=== PATIENT | male | born 1935 | race Two or more races ===

== ENCOUNTER → 2019-02-03 | Outpatient (CLI) | payer MEDICARE, OTHER | END | disposition home or self-care (01) | LOC: Rad HDHVI 07:53 | PROVIDERS: ATTEND Internal Medicine Cardiovascular Disease | DX: I08.0 Rheumatic disorders of both mitral and aortic valves (principal); R22.43 Localized swelling, mass and lump, lower limb, bilateral | CPT/HCPCS: 93306; 93970 ==

== ENCOUNTER → 2019-02-11 | Outpatient (CLI) | payer MEDICARE, OTHER ==
[~2019-02-11] VITALS: Ht 177.8 cm; Wt 99.8 kg
[~2019-02-11] MED LIST: ADENOSINE 84 MG in GIVE UN-DILUTED 0 ML IV ONE; ADENOSINE 90 MG/30 ML INJ IV ONE
== END | disposition home or self-care (01) ==
LOC: Rad HDHVI 13:35
PROVIDERS: ATTEND Internal Medicine Cardiovascular Disease
DX: I51.7 Cardiomegaly (principal); E87.5 Hyperkalemia; R60.9 Edema, unspecified
CPT/HCPCS: 78452; 93005; 96374; 96375; A9500; J0153

== ENCOUNTER → 2020-03-07 | Outpatient (CLI) | payer MEDICARE, OTHER ==
[~2020-03-07] VITALS: Ht 177.8 cm; Wt 102.1 kg
== END | disposition home or self-care (01) ==
LOC: Rad HDHVI 09:36
PROVIDERS: ATTEND Internal Medicine Cardiovascular Disease
DX: I11.0 Hypertensive heart disease with heart failure (principal); I50.33 Acute on chronic diastolic (congestive) heart failure; E78.00 Pure hypercholesterolemia, unspecified
CPT/HCPCS: 78472; 96374; 96375; A9505

== ENCOUNTER → 2020-03-11 | Outpatient (CLI) | payer MEDICARE, OTHER | END | disposition home or self-care (01) | LOC: Rad HDHVI 07:58 | PROVIDERS: ATTEND Internal Medicine Cardiovascular Disease | DX: I11.9 Hypertensive heart disease without heart failure (principal); I50.33 Acute on chronic diastolic (congestive) heart failure | CPT/HCPCS: 93306 ==

== ENCOUNTER → 2023-07-24 | Outpatient (CLI) | payer MEDICARE, OTHER ==
[~2023-07-24] MED LIST changes: -ADENOSINE 84 MG in GIVE UN-DILUTED 0 ML IV ONE; -ADENOSINE 90 MG/30 ML INJ IV ONE; +BUMETANIDE 1mg/4ml VIAL (0.25mg/ml) ONE; +BUMETANIDE 2.5mg/10ml (0.25 mg/ml) INJ IV ONE; +POTASSIUM CHL 20 Meq TABLET PO ONE
[2023-07-24 15:58] VITALS: BP 128/62; PULSE 72; RESP 16; O2SAT 96
[2023-07-24 16:40] VITALS: BP 160/70; PULSE 58; RESP 16; O2SAT 96
== END | disposition home or self-care (01) ==
LOC: CHF HDHVI 16:01
PROVIDERS: ATTEND Internal Medicine Cardiovascular Disease
DX: R60.9 Edema, unspecified (principal)
CPT/HCPCS: 96374; G0463; J3490

== ENCOUNTER → 2023-07-30 | Outpatient (CLI) | payer MEDICARE, OTHER | END | disposition home or self-care (01) | LOC: Rad HDHVI 09:53 | PROVIDERS: ATTEND Internal Medicine Cardiovascular Disease | DX: I08.0 Rheumatic disorders of both mitral and aortic valves (principal); I11.9 Hypertensive heart disease without heart failure | CPT/HCPCS: 93306 ==

== ENCOUNTER → 2023-08-07 | Outpatient (CLI) | payer MEDICARE, OTHER ==
[~2023-08-07] MED LIST changes: +POTASSIUM CHL 10 Meq TABLET PO ONE
[2023-08-07 11:22] VITALS: BP 149/66; PULSE 64; RESP 16; O2SAT 96
[2023-08-07 12:38] VITALS: BP 162/71; PULSE 60; RESP 16; O2SAT 96
== END | disposition home or self-care (01) ==
LOC: CHF HDHVI 11:21
PROVIDERS: ATTEND Internal Medicine Cardiovascular Disease
DX: R60.0 Localized edema (principal)
CPT/HCPCS: 96374; G0463; J3490

== ENCOUNTER → 2023-09-06 | Outpatient (CLI) | payer MEDICARE, OTHER ==
[~2023-09-06] MED LIST changes: -BUMETANIDE 1mg/4ml VIAL (0.25mg/ml) ONE; +BUMETANIDE INJECTION 10 ML ONE
[2023-09-06 10:50] VITALS: BP 148/61; PULSE 51; RESP 18; O2SAT 99
[2023-09-06 12:08] VITALS: BP 163/69; PULSE 51; RESP 16; O2SAT 95
== END | disposition home or self-care (01) ==
LOC: CHF HDHVI 10:44
PROVIDERS: ATTEND Internal Medicine Cardiovascular Disease
DX: I11.0 Hypertensive heart disease with heart failure (principal); I50.32 Chronic diastolic (congestive) heart failure; E78.5 Hyperlipidemia, unspecified
CPT/HCPCS: 96374; G0463

== ENCOUNTER → 2023-09-19 | Outpatient (CLI) | payer MEDICARE, OTHER ==
[~2023-09-19] MED LIST changes: -BUMETANIDE 2.5mg/10ml (0.25 mg/ml) INJ IV ONE; -POTASSIUM CHL 20 Meq TABLET PO ONE
[2023-09-19 10:48] VITALS: BP 127/61; PULSE 61; RESP 16; O2SAT 100
[2023-09-19 11:07] VITALS: BP 127/61; PULSE 61; RESP 16; O2SAT 100
== END | disposition home or self-care (01) ==
LOC: CHF HDHVI 10:41
PROVIDERS: ATTEND Internal Medicine Cardiovascular Disease
DX: R60.0 Localized edema (principal)
CPT/HCPCS: G0463

== ENCOUNTER → 2023-10-03 | Outpatient (CLI) | payer MEDICARE, OTHER ==
[2023-10-03 10:58] VITALS: BP 161/70; PULSE 58; RESP 16; O2SAT 98
[2023-10-03] MEDS: CYANOCOBALAMIN (B-12) 1000 MCG/1 ML VIAL ONE (11:04)
[2023-10-03] MEDS: CYANOCOBALAMIN (B-12) 1000 MCG/1 ML VIAL IM ONE (11:20)
[2023-10-03 11:25] VITALS: BP 131/64; PULSE 58; RESP 16; O2SAT 98
[2023-10-03 11:32] VITALS: BP_SYST 124; BP_SYST 161; BP_DIAS 59; BP_DIAS 70; PULSE 58; PULSE 77; RESP 16; O2SAT 95; O2SAT 98
[2023-10-03 12:22] VITALS: BP_SYST 121; BP_SYST 131; BP_DIAS 56; BP_DIAS 64; PULSE 58; PULSE 75; RESP 16; O2SAT 95; O2SAT 98
== END | disposition home or self-care (01) ==
LOC: CHF HDHVI 10:49
PROVIDERS: ATTEND Internal Medicine Cardiovascular Disease
DX: D64.9 Anemia, unspecified (principal); I11.0 Hypertensive heart disease with heart failure; I50.32 Chronic diastolic (congestive) heart failure; E78.5 Hyperlipidemia, unspecified
CPT/HCPCS: 96372; G0463; J3420

== ENCOUNTER → 2023-10-24 | Outpatient (CLI) | payer MEDICARE, OTHER ==
[2023-10-24 12:38] VITALS: BP 143/55; PULSE 53; RESP 16; O2SAT 98
[2023-10-24] MEDS: POTASSIUM CHL 10 Meq TABLET PO ONE (12:39)
[2023-10-24] MEDS: BUMETANIDE INJECTION 10 ML ONE (12:40)
[2023-10-24] MEDS: BUMETANIDE 2.5mg/10ml (0.25 mg/ml) INJ IV ONE (12:46)
[2023-10-24] MEDS: POTASSIUM CHL 20 Meq TABLET PO ONE (12:48)
[2023-10-24 13:59] VITALS: BP 150/67; PULSE 54; RESP 16; O2SAT 98
== END | disposition home or self-care (01) ==
LOC: CHF HDHVI 12:35
PROVIDERS: ATTEND Internal Medicine Cardiovascular Disease
DX: I11.0 Hypertensive heart disease with heart failure (principal); I50.32 Chronic diastolic (congestive) heart failure; R60.0 Localized edema; E78.5 Hyperlipidemia, unspecified
CPT/HCPCS: 96374; G0463

== ENCOUNTER → 2023-11-26 | Outpatient (CLI) | payer MEDICARE, OTHER ==
[2023-11-26] VITALS (10 sets, daily range): BP systolic 128–160; BP diastolic 51–61; PULSE 58–63; RESP 16; O2SAT 97
[~2023-11-26] MED LIST changes: -BUMETANIDE INJECTION 10 ML ONE; -POTASSIUM CHL 10 Meq TABLET PO ONE; +SODIUM FERRIC GLUC CPLEX 62.5MG/5ML VIAL IV ONE
[2023-11-26] MEDS: DOBUTamine 1000MCG/ML 250 ML IV ONE (10:54)
[2023-11-26] MEDS: DOBUTamine 1000MCG/ML 250 ML IV SCH (11:00)
== END | disposition home or self-care (01) ==
LOC: CHF HDHVI 10:46
PROVIDERS: ATTEND Internal Medicine Cardiovascular Disease
DX: I11.0 Hypertensive heart disease with heart failure (principal); I50.33 Acute on chronic diastolic (congestive) heart failure; E78.5 Hyperlipidemia, unspecified
CPT/HCPCS: 96365; 96366; G0463; J1250

== ENCOUNTER → 2023-12-03 | Outpatient (CLI) | payer MEDICARE, OTHER ==
[2023-12-03] VITALS (10 sets, daily range): BP systolic 125–168; BP diastolic 49–76; PULSE 56–63; RESP 18; O2SAT 98
[2023-12-03] MEDS: DOBUTamine 1000MCG/ML 250 ML IV SCH (10:37)
[2023-12-03] MEDS: DOBUTamine 1000MCG/ML 250 ML IV ONE (10:40)
== END | disposition home or self-care (01) ==
LOC: CHF HDHVI 10:34
PROVIDERS: ATTEND Internal Medicine Cardiovascular Disease
DX: I11.0 Hypertensive heart disease with heart failure (principal); I50.33 Acute on chronic diastolic (congestive) heart failure; E78.5 Hyperlipidemia, unspecified
CPT/HCPCS: 96365; 96366; G0463; J1250

== ENCOUNTER → 2023-12-04 | Outpatient (CLI) | payer MEDICARE, OTHER | END | disposition home or self-care (01) | LOC: Rad HDHVI 11:49 | PROVIDERS: ATTEND Internal Medicine Cardiovascular Disease | DX: R06.02 Shortness of breath (principal); R05.9 Cough, unspecified | CPT/HCPCS: 71046 ==

== ENCOUNTER → 2023-12-10 | Outpatient (CLI) | payer MEDICARE, OTHER ==
[2023-12-10] VITALS (9 sets, daily range): BP systolic 137–167; BP diastolic 56–71; PULSE 58–68; RESP 18; O2SAT 96
[2023-12-10] MEDS: DOBUTamine 1000MCG/ML 250 ML IV ONE ×2 (10:56→11:39)
== END | disposition home or self-care (01) ==
LOC: CHF HDHVI 10:41
PROVIDERS: ATTEND Internal Medicine Cardiovascular Disease
DX: I11.0 Hypertensive heart disease with heart failure (principal); I50.33 Acute on chronic diastolic (congestive) heart failure; E78.5 Hyperlipidemia, unspecified; N19 Unspecified kidney failure
CPT/HCPCS: 96365; 96366; G0463; J1250

== ENCOUNTER → 2023-12-17 | Outpatient (CLI) | payer MEDICARE, OTHER ==
[2023-12-17] VITALS (9 sets, daily range): BP systolic 124–148; BP diastolic 44–61; PULSE 56–61; RESP 18; O2SAT 99
[2023-12-17] MEDS: DOBUTamine 1000MCG/ML 250 ML IV ONE ×2 (11:01→11:02)
== END | disposition home or self-care (01) ==
LOC: CHF HDHVI 10:52
PROVIDERS: ATTEND Internal Medicine Cardiovascular Disease
DX: I11.0 Hypertensive heart disease with heart failure (principal); I50.33 Acute on chronic diastolic (congestive) heart failure; E78.5 Hyperlipidemia, unspecified; N19 Unspecified kidney failure
CPT/HCPCS: 96365; 96366; G0463; J1250

== ENCOUNTER → 2023-12-24 | Outpatient (CLI) | payer MEDICARE, OTHER ==
[2023-12-24] VITALS (10 sets, daily range): BP systolic 114–145; BP diastolic 43–55; PULSE 56–68; RESP 18; O2SAT 97
[2023-12-24] MEDS: DOBUTamine 1000MCG/ML 250 ML IV ONE ×2 (10:45→10:47)
== END | disposition home or self-care (01) ==
LOC: CHF HDHVI 10:57
PROVIDERS: ATTEND Internal Medicine Cardiovascular Disease
DX: I11.0 Hypertensive heart disease with heart failure (principal); I50.33 Acute on chronic diastolic (congestive) heart failure; E78.5 Hyperlipidemia, unspecified; N19 Unspecified kidney failure
CPT/HCPCS: 96365; 96366; G0463; J1250

== ENCOUNTER → 2023-12-31 | Outpatient (CLI) | payer MEDICARE, OTHER ==
[2023-12-31] VITALS (9 sets, daily range): BP systolic 123–161; BP diastolic 45–65; PULSE 57–64; RESP 16; O2SAT 99
[2023-12-31] MEDS: DOBUTamine 1000MCG/ML 250 ML IV ONE ×2 (10:24→10:38)
== END | disposition home or self-care (01) ==
LOC: CHF HDHVI 10:23
PROVIDERS: ATTEND Internal Medicine Cardiovascular Disease
DX: I11.0 Hypertensive heart disease with heart failure (principal); I50.33 Acute on chronic diastolic (congestive) heart failure; E78.5 Hyperlipidemia, unspecified; I25.10 Atherosclerotic heart disease of native coronary artery without angina pectoris; R06.02 Shortness of breath
CPT/HCPCS: 96365; 96366; G0463; J1250

== ENCOUNTER → 2024-01-23 | Outpatient (CLI) | payer MEDICARE, OTHER ==
[2024-01-23] VITALS (9 sets, daily range): BP systolic 143–175; BP diastolic 58–67; PULSE 59–69; RESP 16; O2SAT 97
[2024-01-23] MEDS: DOBUTamine 1000MCG/ML 250 ML IV ONE ×2 (11:05→11:59)
== END | disposition home or self-care (01) ==
LOC: CHF HDHVI 11:14
PROVIDERS: ATTEND Internal Medicine Cardiovascular Disease
DX: I11.0 Hypertensive heart disease with heart failure (principal); I50.43 Acute on chronic combined systolic (congestive) and diastolic (congestive) heart failure; I42.0 Dilated cardiomyopathy; I25.10 Atherosclerotic heart disease of native coronary artery without angina pectoris; E78.5 Hyperlipidemia, unspecified
CPT/HCPCS: 96365; G0463; J1250; 96366

== ENCOUNTER → 2024-01-28 | Outpatient (CLI) | payer MEDICARE, OTHER ==
[2024-01-28] VITALS (10 sets, daily range): BP systolic 149–171; BP diastolic 58–78; PULSE 54–63; RESP 18; O2SAT 97
[2024-01-28] MEDS: DOBUTamine 1000MCG/ML 250 ML IV ONE ×2 (11:13→11:15)
== END | disposition home or self-care (01) ==
LOC: CHF HDHVI 11:00
PROVIDERS: ATTEND Internal Medicine Cardiovascular Disease
DX: I11.0 Hypertensive heart disease with heart failure (principal); I50.43 Acute on chronic combined systolic (congestive) and diastolic (congestive) heart failure; I25.10 Atherosclerotic heart disease of native coronary artery without angina pectoris; I25.5 Ischemic cardiomyopathy; I25.2 Old myocardial infarction; I42.0 Dilated cardiomyopathy; E78.5 Hyperlipidemia, unspecified
CPT/HCPCS: 96365; 96366; G0463; J1250

== ENCOUNTER → 2024-02-04 | Outpatient (CLI) | payer MEDICARE, OTHER ==
[2024-02-04] VITALS (8 sets, daily range): BP systolic 136–173; BP diastolic 52–102; PULSE 55–62; RESP 18; O2SAT 99
[2024-02-04] MEDS: DOBUTamine 1000MCG/ML 250 ML IV ONE ×2 (11:01→11:15)
== END | disposition home or self-care (01) ==
LOC: CHF HDHVI 10:53
PROVIDERS: ATTEND Internal Medicine Cardiovascular Disease
DX: I11.0 Hypertensive heart disease with heart failure (principal); I50.43 Acute on chronic combined systolic (congestive) and diastolic (congestive) heart failure; I25.10 Atherosclerotic heart disease of native coronary artery without angina pectoris; I25.5 Ischemic cardiomyopathy; I25.2 Old myocardial infarction; I42.0 Dilated cardiomyopathy; E78.5 Hyperlipidemia, unspecified
CPT/HCPCS: 96365; 96366; G0463; J1250

== ENCOUNTER → 2024-02-11 | Outpatient (CLI) | payer MEDICARE, OTHER ==
[2024-02-11] VITALS (10 sets, daily range): BP systolic 138–153; BP diastolic 51–64; PULSE 56–69; RESP 16; O2SAT 95
[2024-02-11] MEDS: DOBUTamine 1000MCG/ML 250 ML IV ONE ×2 (13:24→13:35)
== END | disposition home or self-care (01) ==
LOC: CHF HDHVI 13:06
PROVIDERS: ATTEND Internal Medicine Cardiovascular Disease
DX: I11.0 Hypertensive heart disease with heart failure (principal); I50.33 Acute on chronic diastolic (congestive) heart failure; I25.10 Atherosclerotic heart disease of native coronary artery without angina pectoris; E78.5 Hyperlipidemia, unspecified; I25.2 Old myocardial infarction
CPT/HCPCS: 96365; 96366; G0463; J1250

== ENCOUNTER → 2024-02-19 | Outpatient (CLI) | payer MEDICARE, OTHER ==
[2024-02-19] VITALS (9 sets, daily range): BP systolic 131–159; BP diastolic 49–64; PULSE 55–64; RESP 16; O2SAT 96
[2024-02-19] MEDS: DOBUTamine 1000MCG/ML 250 ML IV ONE ×2 (10:47→11:06)
== END | disposition home or self-care (01) ==
LOC: CHF HDHVI 10:43
PROVIDERS: ATTEND Internal Medicine Cardiovascular Disease
DX: I11.0 Hypertensive heart disease with heart failure (principal); I50.43 Acute on chronic combined systolic (congestive) and diastolic (congestive) heart failure; I25.10 Atherosclerotic heart disease of native coronary artery without angina pectoris; I25.2 Old myocardial infarction; E78.5 Hyperlipidemia, unspecified
CPT/HCPCS: 96365; 96366; G0463; J1250

== ENCOUNTER → 2024-02-26 | Outpatient (CLI) | payer MEDICARE, OTHER ==
[2024-02-26] VITALS (10 sets, daily range): BP systolic 130–160; BP diastolic 50–68; PULSE 56–61; RESP 18; O2SAT 99
[2024-02-26] MEDS: DOBUTamine 1000MCG/ML 250 ML IV ONE ×2 (11:02→11:08)
== END | disposition home or self-care (01) ==
LOC: CHF HDHVI 10:52
PROVIDERS: ATTEND Internal Medicine Cardiovascular Disease
DX: I11.0 Hypertensive heart disease with heart failure (principal); I50.33 Acute on chronic diastolic (congestive) heart failure; I25.10 Atherosclerotic heart disease of native coronary artery without angina pectoris; E78.5 Hyperlipidemia, unspecified; I25.2 Old myocardial infarction
CPT/HCPCS: 96365; 96366; G0463; J1250

== ENCOUNTER → 2024-03-03 | Outpatient (CLI) | payer MEDICARE, OTHER ==
[2024-03-03] VITALS (9 sets, daily range): BP systolic 129–168; BP diastolic 48–69; PULSE 53–64; RESP 18; O2SAT 98
[2024-03-03] MEDS: DOBUTamine 1000MCG/ML 250 ML IV ONE ×2 (11:00→11:02)
== END | disposition home or self-care (01) ==
LOC: CHF HDHVI 10:55
PROVIDERS: ATTEND Internal Medicine Cardiovascular Disease
DX: I11.0 Hypertensive heart disease with heart failure (principal); I50.33 Acute on chronic diastolic (congestive) heart failure; I25.10 Atherosclerotic heart disease of native coronary artery without angina pectoris; I25.5 Ischemic cardiomyopathy; I25.2 Old myocardial infarction; I42.0 Dilated cardiomyopathy; E78.5 Hyperlipidemia, unspecified
CPT/HCPCS: 96365; 96366; G0463; J1250

== ENCOUNTER → 2024-03-10 | Outpatient (CLI) | payer MEDICARE, OTHER ==
[2024-03-10] VITALS (10 sets, daily range): BP systolic 127–163; BP diastolic 49–75; PULSE 53–63; RESP 18; O2SAT 99
[2024-03-10] MEDS: DOBUTamine 1000MCG/ML 250 ML IV ONE ×2 (11:10→11:12)
== END | disposition home or self-care (01) ==
LOC: CHF HDHVI 10:57
PROVIDERS: ATTEND Internal Medicine Cardiovascular Disease
DX: I11.0 Hypertensive heart disease with heart failure (principal); I50.43 Acute on chronic combined systolic (congestive) and diastolic (congestive) heart failure; I25.10 Atherosclerotic heart disease of native coronary artery without angina pectoris; I25.5 Ischemic cardiomyopathy; I25.2 Old myocardial infarction; I42.0 Dilated cardiomyopathy; E78.5 Hyperlipidemia, unspecified
CPT/HCPCS: 96365; 96366; G0463; J1250

== ENCOUNTER → 2024-03-31 | Outpatient (CLI) | payer MEDICARE, OTHER ==
[2024-03-31] VITALS (10 sets, daily range): BP systolic 121–166; BP diastolic 47–80; PULSE 53–60; RESP 20; O2SAT 97
[2024-03-31] MEDS: DOBUTamine 1000MCG/ML 250 ML IV ONE ×2 (11:29→11:30)
== END | disposition home or self-care (01) ==
LOC: CHF HDHVI 11:00
PROVIDERS: ATTEND Internal Medicine Cardiovascular Disease
DX: I11.0 Hypertensive heart disease with heart failure (principal); I50.43 Acute on chronic combined systolic (congestive) and diastolic (congestive) heart failure; I25.5 Ischemic cardiomyopathy; I25.10 Atherosclerotic heart disease of native coronary artery without angina pectoris; E78.5 Hyperlipidemia, unspecified; I25.2 Old myocardial infarction; I73.9 Peripheral vascular disease, unspecified
CPT/HCPCS: 96365; 96366; G0463; J1250

== ENCOUNTER → 2024-05-06 | Outpatient (CLI) | payer MEDICARE, OTHER ==
[2024-05-06] VITALS (10 sets, daily range): BP systolic 110–125; BP diastolic 42–50; PULSE 50–55; RESP 16; O2SAT 97
[~2024-05-06] MED LIST changes: +ADENOSINE 90 MG/30 ML INJ IV ONE; +DOBUTamine 1000MCG/ML 250 ML IV ONE; -SODIUM FERRIC GLUC CPLEX 62.5MG/5ML VIAL IV ONE
[2024-05-06] MEDS: DOBUTamine 1000MCG/ML 250 ML IV ONE (09:48)
== END | disposition home or self-care (01) ==
LOC: CHF HDHVI 09:26
PROVIDERS: ATTEND Internal Medicine Cardiovascular Disease
DX: I11.0 Hypertensive heart disease with heart failure (principal); I50.43 Acute on chronic combined systolic (congestive) and diastolic (congestive) heart failure; I25.5 Ischemic cardiomyopathy; I25.10 Atherosclerotic heart disease of native coronary artery without angina pectoris; I25.2 Old myocardial infarction; E78.5 Hyperlipidemia, unspecified
CPT/HCPCS: 96365; 96366; G0463; J0153; J1250

== ENCOUNTER → 2024-05-13 | Outpatient (CLI) | payer MEDICARE, OTHER ==
[2024-05-13] VITALS (10 sets, daily range): BP systolic 106–138; BP diastolic 35–53; PULSE 55–64; RESP 16; O2SAT 98
[2024-05-13] MEDS: DOBUTamine 1000MCG/ML 250 ML IV ONE ×2 (09:55→10:01)
== END | disposition home or self-care (01) ==
LOC: CHF HDHVI 09:38
PROVIDERS: ATTEND Internal Medicine Cardiovascular Disease
DX: I11.0 Hypertensive heart disease with heart failure (principal); I50.33 Acute on chronic diastolic (congestive) heart failure; I25.10 Atherosclerotic heart disease of native coronary artery without angina pectoris; E78.5 Hyperlipidemia, unspecified; I25.2 Old myocardial infarction; I73.9 Peripheral vascular disease, unspecified
CPT/HCPCS: 96365; 96366; G0463; J1250

== ENCOUNTER → 2024-05-27 | Outpatient (CLI) | payer MEDICARE, OTHER ==
[2024-05-27] VITALS (10 sets, daily range): BP systolic 130–157; BP diastolic 49–63; PULSE 52–61; RESP 18; O2SAT 94
[2024-05-27] MEDS: DOBUTamine 1000MCG/ML 250 ML IV ONE ×2 (10:52→11:24)
== END | disposition home or self-care (01) ==
LOC: CHF HDHVI 10:37
PROVIDERS: ATTEND Internal Medicine Cardiovascular Disease
DX: I13.0 Hypertensive heart and chronic kidney disease with heart failure and stage 1 through stage 4 chronic kidney disease, or unspecified chronic kidney disease (principal); N18.30 Chronic kidney disease, stage 3 unspecified; I50.33 Acute on chronic diastolic (congestive) heart failure; I73.9 Peripheral vascular disease, unspecified; I25.2 Old myocardial infarction; I25.10 Atherosclerotic heart disease of native coronary artery without angina pectoris; E78.5 Hyperlipidemia, unspecified
CPT/HCPCS: 96365; 96366; G0463; J1250

== ENCOUNTER → 2024-06-03 | Outpatient (CLI) | payer MEDICARE, OTHER ==
[2024-06-03] VITALS (10 sets, daily range): BP systolic 63–163; BP diastolic 45–63; PULSE 51–61; RESP 18; O2SAT 98
[~2024-06-03] MED LIST changes: -ADENOSINE 90 MG/30 ML INJ IV ONE; -DOBUTamine 1000MCG/ML 250 ML IV ONE; +MAGNESIUM SULFATE 1GM/100ML 100 ML IV ONE; +MAGNESIUM SULFATE 1GM/100ML 100 ML IV SCH
[2024-06-03] MEDS: DOBUTamine 1000MCG/ML 250 ML IV ONE ×2 (09:58→10:11)
[2024-06-03] MEDS: MAGNESIUM SULFATE 1GM/100ML 100 ML IV ONE ×2 (10:54→12:02)
== END | disposition home or self-care (01) ==
LOC: CHF HDHVI 09:44
PROVIDERS: ATTEND Internal Medicine Cardiovascular Disease
DX: I13.0 Hypertensive heart and chronic kidney disease with heart failure and stage 1 through stage 4 chronic kidney disease, or unspecified chronic kidney disease (principal); I50.33 Acute on chronic diastolic (congestive) heart failure; N18.4 Chronic kidney disease, stage 4 (severe); E83.42 Hypomagnesemia; I25.5 Ischemic cardiomyopathy; I25.10 Atherosclerotic heart disease of native coronary artery without angina pectoris; I25.2 Old myocardial infarction; E78.5 Hyperlipidemia, unspecified
CPT/HCPCS: 96365; 96366; 96368; G0463; J1250; J3475; 96367

== ENCOUNTER → 2024-06-17 | Outpatient (CLI) | payer MEDICARE, OTHER ==
[2024-06-17] VITALS (10 sets, daily range): BP systolic 129–177; BP diastolic 49–67; PULSE 55–61; RESP 18; O2SAT 99
[2024-06-17] MEDS: DOBUTamine 1000MCG/ML 250 ML IV ONE ×2 (10:00→10:50)
[2024-06-17] MEDS: CYANOCOBALAMIN (B-12) 1000 MCG/1 ML VIAL IM ONE (13:11)
[2024-06-17] MEDS: CYANOCOBALAMIN (B-12) 1000 MCG/1 ML VIAL ONE (14:21)
== END | disposition home or self-care (01) ==
LOC: CHF HDHVI 09:29
PROVIDERS: ATTEND Internal Medicine Cardiovascular Disease
DX: I13.0 Hypertensive heart and chronic kidney disease with heart failure and stage 1 through stage 4 chronic kidney disease, or unspecified chronic kidney disease (principal); N18.30 Chronic kidney disease, stage 3 unspecified; I50.33 Acute on chronic diastolic (congestive) heart failure; I25.5 Ischemic cardiomyopathy; I25.10 Atherosclerotic heart disease of native coronary artery without angina pectoris; E78.5 Hyperlipidemia, unspecified; I25.2 Old myocardial infarction; I73.9 Peripheral vascular disease, unspecified
CPT/HCPCS: 96365; 96366; 96372; G0463; J1250; J3420

== ENCOUNTER → 2024-06-24 | Outpatient (CLI) | payer MEDICARE, OTHER ==
[2024-06-24] VITALS (10 sets, daily range): BP systolic 92–158; BP diastolic 44–78; PULSE 51–78; RESP 16; O2SAT 99
[2024-06-24] MEDS: DOBUTamine 1000MCG/ML 250 ML IV ONE ×2 (09:25→09:32)
== END | disposition home or self-care (01) ==
LOC: CHF HDHVI 09:21
PROVIDERS: ATTEND Internal Medicine Cardiovascular Disease
DX: I13.0 Hypertensive heart and chronic kidney disease with heart failure and stage 1 through stage 4 chronic kidney disease, or unspecified chronic kidney disease (principal); I50.33 Acute on chronic diastolic (congestive) heart failure; N18.30 Chronic kidney disease, stage 3 unspecified; I25.10 Atherosclerotic heart disease of native coronary artery without angina pectoris; I25.2 Old myocardial infarction; E78.5 Hyperlipidemia, unspecified
CPT/HCPCS: 96365; 96366; G0463; J1250

== ENCOUNTER → 2024-07-13 | Outpatient (CLI) | payer MEDICARE, OTHER ==
[2024-07-13] VITALS (9 sets, daily range): BP systolic 132–165; BP diastolic 54–85; PULSE 51–61; RESP 18; O2SAT 97
[2024-07-13] MEDS: DOBUTamine 1000MCG/ML 250 ML IV ONE ×2 (12:13→12:16)
== END | disposition home or self-care (01) ==
LOC: CHF HDHVI 09:26
PROVIDERS: ATTEND Internal Medicine Cardiovascular Disease
DX: I13.0 Hypertensive heart and chronic kidney disease with heart failure and stage 1 through stage 4 chronic kidney disease, or unspecified chronic kidney disease (principal); N18.4 Chronic kidney disease, stage 4 (severe); I50.33 Acute on chronic diastolic (congestive) heart failure; I25.5 Ischemic cardiomyopathy; I25.10 Atherosclerotic heart disease of native coronary artery without angina pectoris; I25.2 Old myocardial infarction; E78.5 Hyperlipidemia, unspecified; I73.9 Peripheral vascular disease, unspecified
CPT/HCPCS: 96365; 96366; G0463; J1250

== ENCOUNTER → 2024-07-24 | Outpatient (CLI) | payer MEDICARE, OTHER ==
[2024-07-24] VITALS (10 sets, daily range): BP systolic 96–122; BP diastolic 39–48; PULSE 61–66; RESP 18; O2SAT 98
[2024-07-24] MEDS: DOBUTamine 1000MCG/ML 250 ML IV ONE ×2 (09:30→09:41)
[2024-07-24] MEDS: CYANOCOBALAMIN (B-12) 1000 MCG/1 ML VIAL ONE (12:51)
[2024-07-24] MEDS: CYANOCOBALAMIN (B-12) 1000 MCG/1 ML VIAL IM ONE (12:53)
== END | disposition home or self-care (01) ==
LOC: CHF HDHVI 09:26
PROVIDERS: ATTEND Internal Medicine Cardiovascular Disease
DX: I13.0 Hypertensive heart and chronic kidney disease with heart failure and stage 1 through stage 4 chronic kidney disease, or unspecified chronic kidney disease (principal); I50.33 Acute on chronic diastolic (congestive) heart failure; N18.4 Chronic kidney disease, stage 4 (severe); I25.10 Atherosclerotic heart disease of native coronary artery without angina pectoris; I25.5 Ischemic cardiomyopathy; I25.2 Old myocardial infarction; E78.5 Hyperlipidemia, unspecified
CPT/HCPCS: 96365; 96366; 96372; G0463; J1250; J3420

== ENCOUNTER → 2024-07-29 | Outpatient (CLI) | payer MEDICARE, OTHER ==
[2024-07-29] VITALS (10 sets, daily range): BP systolic 123–145; BP diastolic 38–65; PULSE 53–60; RESP 18; O2SAT 99
[2024-07-29] MEDS: DOBUTamine 1000MCG/ML 250 ML IV ONE ×2 (09:34→09:44)
== END | disposition home or self-care (01) ==
LOC: CHF HDHVI 09:30
PROVIDERS: ATTEND Internal Medicine Cardiovascular Disease
DX: I50.23 Acute on chronic systolic (congestive) heart failure (principal); I13.0 Hypertensive heart and chronic kidney disease with heart failure and stage 1 through stage 4 chronic kidney disease, or unspecified chronic kidney disease; N18.4 Chronic kidney disease, stage 4 (severe); I50.9 Heart failure, unspecified; E78.5 Hyperlipidemia, unspecified; Z79.899 Other long term (current) drug therapy
CPT/HCPCS: 96365; 96366; G0463; J1250

== ENCOUNTER → 2024-08-07 | Outpatient (CLI) | payer MEDICARE, OTHER ==
[2024-08-07] VITALS (9 sets, daily range): BP systolic 124–160; BP diastolic 48–67; PULSE 58–64; RESP 18; O2SAT 99
[2024-08-07] MEDS: DOBUTamine 1000MCG/ML 250 ML IV ONE ×2 (09:32→09:42)
== END | disposition home or self-care (01) ==
LOC: CHF HDHVI 09:33
PROVIDERS: ATTEND Internal Medicine Cardiovascular Disease
DX: I13.0 Hypertensive heart and chronic kidney disease with heart failure and stage 1 through stage 4 chronic kidney disease, or unspecified chronic kidney disease (principal); N18.4 Chronic kidney disease, stage 4 (severe); I50.23 Acute on chronic systolic (congestive) heart failure; E78.5 Hyperlipidemia, unspecified; I25.2 Old myocardial infarction; I73.9 Peripheral vascular disease, unspecified; I25.10 Atherosclerotic heart disease of native coronary artery without angina pectoris; Z79.899 Other long term (current) drug therapy
CPT/HCPCS: 96365; 96366; G0463; J1250

== ENCOUNTER → 2024-08-14 | Outpatient (CLI) | payer MEDICARE, OTHER ==
[2024-08-14] VITALS (10 sets, daily range): BP systolic 143–180; BP diastolic 53–73; PULSE 52–62; RESP 16; O2SAT 96–97
[~2024-08-14] MED LIST changes: +DOBUTamine 1000MCG/ML 250 ML IV ONE; -MAGNESIUM SULFATE 1GM/100ML 100 ML IV ONE; -MAGNESIUM SULFATE 1GM/100ML 100 ML IV SCH
[2024-08-14] MEDS: DOBUTamine 1000MCG/ML 250 ML IV ONE (10:00)
== END | disposition home or self-care (01) ==
LOC: CHF HDHVI 09:47
PROVIDERS: ATTEND Internal Medicine Cardiovascular Disease
DX: I13.0 Hypertensive heart and chronic kidney disease with heart failure and stage 1 through stage 4 chronic kidney disease, or unspecified chronic kidney disease (principal); N18.4 Chronic kidney disease, stage 4 (severe); I50.23 Acute on chronic systolic (congestive) heart failure; I73.9 Peripheral vascular disease, unspecified; E78.5 Hyperlipidemia, unspecified; I25.2 Old myocardial infarction; I25.10 Atherosclerotic heart disease of native coronary artery without angina pectoris; Z79.899 Other long term (current) drug therapy
CPT/HCPCS: 96365; 96366; G0463; J1250

== ENCOUNTER → 2024-08-26 | Outpatient (CLI) | payer MEDICARE, OTHER ==
[2024-08-26] VITALS (10 sets, daily range): BP systolic 120–169; BP diastolic 49–67; PULSE 49–70; RESP 16; O2SAT 100
[2024-08-26] MEDS: DOBUTamine 1000MCG/ML 250 ML IV ONE (08:48)
[2024-08-26] MEDS: DOBUTamine 1000MCG/ML 250 ML IV SCH (08:56)
--- NOTE | 2024-08-26 13:59 | DVHSR ---
APPROVED REPORT EXAM: Two-dimensional and M-mode echocardiogram with Doppler and color Doppler. DIMENSIONS LVDd3.9 (3.8-5.7cm)LA (2D)4.3 (1.9-4.0cm)Aortic Root3.5 (2.0-3.7cm) LVDs2.8 (2.5-4.0cm)LA (MM) (1.9-4.0cm)Aortic Cusp Exc1.4 (1.5-2.0cm) EF (%) 60.0 (55-70%)Rt. Atrium5.1 (1.9-4.0cm)Asc. Aorta cm IVSd1.1 (0.7-1.1cm)RV (D)4.3 (1.8-2.4cm) PWd1.2 (0.7-1.1cm) Mitral Valve MitralMitral Stenosis E wave1.15m/sMV Mean GR.mmHg A wave1.13m/sMV Peak GR.mmHg E/A ratio1.02D MVAcm2 DECEL [id number] 1/2 Timems Aortic Valve Aortic ValveAortic Stenosis V11.19m/Gian Mean GR.9mmHg V22.02m/Gian Peak GR.16mmHg LVOT Diameter2.0 (1.8-2.4cm)Doppler AVA1.85cm2 AI P 1/2 Cihb205.05ms Pulmonic Valve V21.00m/s Tricuspid Valve TR Velocity3.37m/s [id number] LEFT VENTRICLE The left ventricle is normal size. The left ventricle is normal in structure and function. The Ejection Fraction is within normal limits. RIGHT VENTRICLE The right ventricle is normal size. ATRIA The left atrium is enlarged. The right atrium is enlarged. The interatrial septum is intact with no evidence for an atrial septal defect. MITRAL VALVE The mitral valve is normal in structure. Mitral annular calcification is mild. Mitral regurgitation is mild. PULMONIC VALVE The pulmonic valve is not well visualized. There is trace to mild pulmonic valvular regurgitation. TRICUSPID VALVE The tricuspid valve is grossly normal. There is mild tricuspid regurgitation. Right ventricular systolic pressure is 40-50 mmHg. AORTIC VALVE The aortic valve opens well. The aortic valve is mildly sclerotic. There is mild aortic regurgitation. GREAT VESSELS The aortic root is normal size. PERICARDIAL EFFUSION There is no pericardial effusion. Other Information Technically limited study due to body habitus. Conclusion EF 60% MILD TR MILD MR MILD PI MILD AI MILD AV SCLEROSIS LAE GARCIA
== END | disposition home or self-care (01) ==
LOC: Rad HDHVI 08:08
PROVIDERS: ATTEND Internal Medicine Cardiovascular Disease
DX: I13.0 Hypertensive heart and chronic kidney disease with heart failure and stage 1 through stage 4 chronic kidney disease, or unspecified chronic kidney disease (principal); N18.4 Chronic kidney disease, stage 4 (severe); I50.23 Acute on chronic systolic (congestive) heart failure; I25.10 Atherosclerotic heart disease of native coronary artery without angina pectoris; E78.5 Hyperlipidemia, unspecified; I25.2 Old myocardial infarction; I73.9 Peripheral vascular disease, unspecified; Z79.899 Other long term (current) drug therapy
CPT/HCPCS: 93306; 96365; 96366; G0463; J1250; 96374

== ENCOUNTER → 2024-09-02 | Outpatient (CLI) | payer MEDICARE, OTHER ==
[2024-09-02] VITALS (10 sets, daily range): BP systolic 113–180; BP diastolic 56–87; PULSE 52–58; RESP 16; O2SAT 98
[2024-09-02] MEDS: CYANOCOBALAMIN (B-12) 1000 MCG/1 ML VIAL IM ONE (09:30)
[2024-09-02] MEDS: DOBUTamine 1000MCG/ML 250 ML IV ONE ×2 (09:37→09:45)
[2024-09-02] MEDS: CYANOCOBALAMIN (B-12) 1000 MCG/1 ML VIAL ONE (12:43)
== END | disposition home or self-care (01) ==
LOC: CHF HDHVI 09:22
PROVIDERS: ATTEND Internal Medicine Cardiovascular Disease
DX: I11.0 Hypertensive heart disease with heart failure (principal); I50.33 Acute on chronic diastolic (congestive) heart failure
CPT/HCPCS: 96365; 96366; 96372; G0463; J1250; J3420

== ENCOUNTER → 2024-09-09 | Outpatient (CLI) | payer MEDICARE, OTHER ==
[2024-09-09] VITALS (10 sets, daily range): BP systolic 152–175; BP diastolic 60–72; PULSE 55–62; RESP 16–61; O2SAT 99
[2024-09-09] MEDS: DOBUTamine 1000MCG/ML 250 ML IV ONE ×2 (09:56→10:08)
== END | disposition home or self-care (01) ==
LOC: CHF HDHVI 08:56
PROVIDERS: ATTEND Internal Medicine Cardiovascular Disease
DX: I13.0 Hypertensive heart and chronic kidney disease with heart failure and stage 1 through stage 4 chronic kidney disease, or unspecified chronic kidney disease (principal); N18.4 Chronic kidney disease, stage 4 (severe); I50.23 Acute on chronic systolic (congestive) heart failure; I25.10 Atherosclerotic heart disease of native coronary artery without angina pectoris; E78.5 Hyperlipidemia, unspecified; I25.2 Old myocardial infarction; I73.9 Peripheral vascular disease, unspecified; Z79.899 Other long term (current) drug therapy
CPT/HCPCS: 96365; 96366; G0463; J1250

== ENCOUNTER → 2024-09-16 | Outpatient (CLI) | payer MEDICARE, OTHER ==
[2024-09-16] VITALS (10 sets, daily range): BP systolic 123–152; BP diastolic 45–62; PULSE 55–58; RESP 16–18; O2SAT 96
[2024-09-16] MEDS: DOBUTamine 1000MCG/ML 250 ML IV ONE ×2 (08:46→10:06)
== END | disposition home or self-care (01) ==
LOC: CHF HDHVI 09:48
PROVIDERS: ATTEND Internal Medicine Cardiovascular Disease
DX: I13.0 Hypertensive heart and chronic kidney disease with heart failure and stage 1 through stage 4 chronic kidney disease, or unspecified chronic kidney disease (principal); N18.4 Chronic kidney disease, stage 4 (severe); I50.33 Acute on chronic diastolic (congestive) heart failure; I50.23 Acute on chronic systolic (congestive) heart failure; I42.9 Cardiomyopathy, unspecified; I73.9 Peripheral vascular disease, unspecified; E78.5 Hyperlipidemia, unspecified; Z79.899 Other long term (current) drug therapy
CPT/HCPCS: 96365; 96366; G0463; J1250

== ENCOUNTER → 2024-09-23 | Outpatient (CLI) | payer MEDICARE, OTHER ==
[2024-09-23] VITALS (9 sets, daily range): BP systolic 119–146; BP diastolic 43–62; PULSE 52–58; RESP 16; O2SAT 95
[2024-09-23] MEDS: DOBUTamine 1000MCG/ML 250 ML IV ONE ×2 (09:54→10:00)
== END | disposition home or self-care (01) ==
LOC: CHF HDHVI 09:32
PROVIDERS: ATTEND Internal Medicine Cardiovascular Disease
DX: I13.0 Hypertensive heart and chronic kidney disease with heart failure and stage 1 through stage 4 chronic kidney disease, or unspecified chronic kidney disease (principal); I50.43 Acute on chronic combined systolic (congestive) and diastolic (congestive) heart failure; N18.4 Chronic kidney disease, stage 4 (severe); I25.10 Atherosclerotic heart disease of native coronary artery without angina pectoris; I25.2 Old myocardial infarction; Z79.899 Other long term (current) drug therapy
CPT/HCPCS: 96365; 96366; G0463; J1250

== ENCOUNTER → 2024-10-07 | Outpatient (CLI) | payer MEDICARE, OTHER ==
[2024-10-07] VITALS (9 sets, daily range): BP systolic 110–162; BP diastolic 54–68; PULSE 49–54; RESP 16; O2SAT 98
[~2024-10-07] MED LIST changes: -DOBUTamine 1000MCG/ML 250 ML IV ONE; +POTASSIUM CHL 20 Meq TABLET PO ONE
[2024-10-07] MEDS: DOBUTamine 1000MCG/ML 250 ML IV ONE ×2 (09:24→09:36)
[2024-10-07] MEDS: CYANOCOBALAMIN (B-12) 1000 MCG/1 ML VIAL ONE (10:56)
[2024-10-07] MEDS: CYANOCOBALAMIN (B-12) 1000 MCG/1 ML VIAL IM ONE (11:02)
== END | disposition home or self-care (01) ==
LOC: CHF HDHVI 09:17
PROVIDERS: ATTEND Internal Medicine Cardiovascular Disease
DX: I13.0 Hypertensive heart and chronic kidney disease with heart failure and stage 1 through stage 4 chronic kidney disease, or unspecified chronic kidney disease (principal); E11.22 Type 2 diabetes mellitus with diabetic chronic kidney disease; N18.4 Chronic kidney disease, stage 4 (severe); I50.23 Acute on chronic systolic (congestive) heart failure; D64.9 Anemia, unspecified; I25.10 Atherosclerotic heart disease of native coronary artery without angina pectoris; I25.2 Old myocardial infarction; E78.5 Hyperlipidemia, unspecified; E11.51 Type 2 diabetes mellitus with diabetic peripheral angiopathy without gangrene; Z79.899 Other long term (current) drug therapy
CPT/HCPCS: 96365; 96366; 96372; G0463; J1250; J3420

== ENCOUNTER → 2024-10-21 | Outpatient (CLI) | payer MEDICARE, OTHER ==
[2024-10-21] VITALS (9 sets, daily range): BP systolic 132–167; BP diastolic 50–63; PULSE 50–56; RESP 16; O2SAT 97–99
[2024-10-21] MEDS: DOBUTamine 1000MCG/ML 250 ML IV ONE ×2 (08:21→10:05)
== END | disposition home or self-care (01) ==
LOC: CHF HDHVI 09:02
PROVIDERS: ATTEND Internal Medicine Cardiovascular Disease
DX: I13.0 Hypertensive heart and chronic kidney disease with heart failure and stage 1 through stage 4 chronic kidney disease, or unspecified chronic kidney disease (principal); I50.33 Acute on chronic diastolic (congestive) heart failure; N18.4 Chronic kidney disease, stage 4 (severe); E11.22 Type 2 diabetes mellitus with diabetic chronic kidney disease; E11.51 Type 2 diabetes mellitus with diabetic peripheral angiopathy without gangrene; I25.2 Old myocardial infarction; E78.00 Pure hypercholesterolemia, unspecified
CPT/HCPCS: 96365; 96366; G0463; J1250

== ENCOUNTER → 2024-10-28 | Outpatient (CLI) | payer MEDICARE, OTHER ==
[2024-10-28] VITALS (9 sets, daily range): BP systolic 130–175; BP diastolic 43–65; PULSE 53–68; RESP 16; O2SAT 97
[2024-10-28] MEDS: CYANOCOBALAMIN (B-12) 1000 MCG/1 ML VIAL ONE (09:03)
[2024-10-28] MEDS: DOBUTamine 1000MCG/ML 250 ML IV ONE ×2 (09:04→10:07)
[2024-10-28] MEDS: CYANOCOBALAMIN (B-12) 1000 MCG/1 ML VIAL IM ONE (09:50)
== END | disposition home or self-care (01) ==
LOC: CHF HDHVI 09:46
PROVIDERS: ATTEND Internal Medicine Cardiovascular Disease
DX: I13.0 Hypertensive heart and chronic kidney disease with heart failure and stage 1 through stage 4 chronic kidney disease, or unspecified chronic kidney disease (principal); I50.43 Acute on chronic combined systolic (congestive) and diastolic (congestive) heart failure; N18.4 Chronic kidney disease, stage 4 (severe); E53.8 Deficiency of other specified B group vitamins; D64.9 Anemia, unspecified; I25.2 Old myocardial infarction; E78.00 Pure hypercholesterolemia, unspecified; E11.22 Type 2 diabetes mellitus with diabetic chronic kidney disease; E11.51 Type 2 diabetes mellitus with diabetic peripheral angiopathy without gangrene; I25.10 Atherosclerotic heart disease of native coronary artery without angina pectoris; I25.5 Ischemic cardiomyopathy; E03.9 Hypothyroidism, unspecified
CPT/HCPCS: 96365; 96366; 96372; G0463; J1250; J3420

== ENCOUNTER → 2024-11-18 | Outpatient (CLI) | payer MEDICARE, OTHER ==
[2024-11-18] VITALS (9 sets, daily range): BP systolic 99–146; BP diastolic 41–63; PULSE 64–72; RESP 16; O2SAT 97
[2024-11-18] MEDS: DOBUTamine 1000MCG/ML 250 ML IV ONE ×2 (09:47→09:56)
== END | disposition home or self-care (01) ==
LOC: CHF HDHVI 09:31
PROVIDERS: ATTEND Internal Medicine Cardiovascular Disease
DX: I13.0 Hypertensive heart and chronic kidney disease with heart failure and stage 1 through stage 4 chronic kidney disease, or unspecified chronic kidney disease (principal); I50.43 Acute on chronic combined systolic (congestive) and diastolic (congestive) heart failure; N18.4 Chronic kidney disease, stage 4 (severe); I25.2 Old myocardial infarction; E11.22 Type 2 diabetes mellitus with diabetic chronic kidney disease; E11.51 Type 2 diabetes mellitus with diabetic peripheral angiopathy without gangrene; E78.00 Pure hypercholesterolemia, unspecified; I25.10 Atherosclerotic heart disease of native coronary artery without angina pectoris; D64.9 Anemia, unspecified; I25.5 Ischemic cardiomyopathy; E03.9 Hypothyroidism, unspecified; Z79.899 Other long term (current) drug therapy
CPT/HCPCS: 96365; 96366; G0463; J1250

== ENCOUNTER → 2024-11-24 | Outpatient (CLI) | payer MEDICARE, OTHER ==
[2024-11-24] VITALS (9 sets, daily range): BP systolic 122–155; BP diastolic 50–66; PULSE 68–89; RESP 16; O2SAT 96
[2024-11-24] MEDS: DOBUTamine 1000MCG/ML 250 ML IV ONE ×2 (09:31→09:33)
[2024-11-24] MEDS: CYANOCOBALAMIN (B-12) 1000 MCG/1 ML VIAL ONE (12:04)
[2024-11-24] MEDS: CYANOCOBALAMIN (B-12) 1000 MCG/1 ML VIAL IM ONE (12:40)
== END | disposition home or self-care (01) ==
LOC: CHF HDHVI 09:18
PROVIDERS: ATTEND Internal Medicine Cardiovascular Disease
DX: I13.0 Hypertensive heart and chronic kidney disease with heart failure and stage 1 through stage 4 chronic kidney disease, or unspecified chronic kidney disease (principal); E11.22 Type 2 diabetes mellitus with diabetic chronic kidney disease; I50.33 Acute on chronic diastolic (congestive) heart failure; N18.4 Chronic kidney disease, stage 4 (severe); I25.10 Atherosclerotic heart disease of native coronary artery without angina pectoris; I25.5 Ischemic cardiomyopathy; I25.2 Old myocardial infarction; E53.8 Deficiency of other specified B group vitamins; E11.51 Type 2 diabetes mellitus with diabetic peripheral angiopathy without gangrene; E78.5 Hyperlipidemia, unspecified; E03.9 Hypothyroidism, unspecified; Z79.899 Other long term (current) drug therapy
CPT/HCPCS: 96365; 96366; 96372; G0463; J1250; J3420

== ENCOUNTER → 2024-12-02 | Outpatient (CLI) | payer MEDICARE, OTHER ==
[2024-12-02] VITALS (10 sets, daily range): BP systolic 116–141; BP diastolic 45–55; PULSE 62–85; RESP 16; O2SAT 96
[2024-12-02] MEDS: DOBUTamine 1000MCG/ML 250 ML IV ONE ×2 (09:28→09:33)
== END | disposition home or self-care (01) ==
LOC: CHF HDHVI 09:16
PROVIDERS: ATTEND Internal Medicine Cardiovascular Disease
DX: I13.0 Hypertensive heart and chronic kidney disease with heart failure and stage 1 through stage 4 chronic kidney disease, or unspecified chronic kidney disease (principal); E11.22 Type 2 diabetes mellitus with diabetic chronic kidney disease; I50.43 Acute on chronic combined systolic (congestive) and diastolic (congestive) heart failure; N18.4 Chronic kidney disease, stage 4 (severe); I25.10 Atherosclerotic heart disease of native coronary artery without angina pectoris; I25.5 Ischemic cardiomyopathy; I25.2 Old myocardial infarction; E11.51 Type 2 diabetes mellitus with diabetic peripheral angiopathy without gangrene; E53.8 Deficiency of other specified B group vitamins; E78.00 Pure hypercholesterolemia, unspecified; E03.9 Hypothyroidism, unspecified; Z79.899 Other long term (current) drug therapy
CPT/HCPCS: 96365; 96366; G0463; J1250

== ENCOUNTER → 2024-12-09 | Outpatient (CLI) | payer MEDICARE, OTHER ==
[2024-12-09] VITALS (9 sets, daily range): BP systolic 106–121; BP diastolic 45–54; PULSE 70–92; RESP 16; O2SAT 97
[2024-12-09] MEDS: DOBUTamine 1000MCG/ML 250 ML IV ONE ×2 (09:41→09:47)
== END | disposition home or self-care (01) ==
LOC: CHF HDHVI 09:26
PROVIDERS: ATTEND Internal Medicine Cardiovascular Disease
DX: I13.0 Hypertensive heart and chronic kidney disease with heart failure and stage 1 through stage 4 chronic kidney disease, or unspecified chronic kidney disease (principal); E11.22 Type 2 diabetes mellitus with diabetic chronic kidney disease; I50.43 Acute on chronic combined systolic (congestive) and diastolic (congestive) heart failure; N18.4 Chronic kidney disease, stage 4 (severe); I25.10 Atherosclerotic heart disease of native coronary artery without angina pectoris; I25.5 Ischemic cardiomyopathy; I25.2 Old myocardial infarction; E78.00 Pure hypercholesterolemia, unspecified; Z79.899 Other long term (current) drug therapy
CPT/HCPCS: 96365; 96366; G0463; J1250

== ENCOUNTER → 2024-12-16 | Outpatient (CLI) | payer MEDICARE, OTHER ==
[2024-12-16] VITALS (9 sets, daily range): BP systolic 105–142; BP diastolic 47–77; PULSE 65–78; RESP 16; O2SAT 97–98
[2024-12-16] MEDS: DOBUTamine 1000MCG/ML 250 ML IV ONE ×2 (09:38→09:49)
== END | disposition home or self-care (01) ==
LOC: CHF HDHVI 09:28
PROVIDERS: ATTEND Internal Medicine Cardiovascular Disease
DX: I13.0 Hypertensive heart and chronic kidney disease with heart failure and stage 1 through stage 4 chronic kidney disease, or unspecified chronic kidney disease (principal); E11.22 Type 2 diabetes mellitus with diabetic chronic kidney disease; I50.43 Acute on chronic combined systolic (congestive) and diastolic (congestive) heart failure; N18.4 Chronic kidney disease, stage 4 (severe); I25.10 Atherosclerotic heart disease of native coronary artery without angina pectoris; I25.5 Ischemic cardiomyopathy; I25.2 Old myocardial infarction; E11.51 Type 2 diabetes mellitus with diabetic peripheral angiopathy without gangrene; E78.00 Pure hypercholesterolemia, unspecified; E03.9 Hypothyroidism, unspecified; Z79.899 Other long term (current) drug therapy
CPT/HCPCS: 96365; 96366; G0463; J1250

== ENCOUNTER → 2024-12-30 | Outpatient (CLI) | payer MEDICARE, OTHER ==
[2024-12-30] VITALS (9 sets, daily range): BP systolic 111–147; BP diastolic 50–62; PULSE 75–101; RESP 16; O2SAT 96
[2024-12-30] MEDS: DOBUTamine 1000MCG/ML 250 ML IV ONE ×2 (09:41→09:49)
== END | disposition home or self-care (01) ==
LOC: CHF HDHVI 09:35
PROVIDERS: ATTEND Internal Medicine Cardiovascular Disease
DX: I13.0 Hypertensive heart and chronic kidney disease with heart failure and stage 1 through stage 4 chronic kidney disease, or unspecified chronic kidney disease (principal); E11.22 Type 2 diabetes mellitus with diabetic chronic kidney disease; I50.33 Acute on chronic diastolic (congestive) heart failure; N18.4 Chronic kidney disease, stage 4 (severe); E11.51 Type 2 diabetes mellitus with diabetic peripheral angiopathy without gangrene; I25.10 Atherosclerotic heart disease of native coronary artery without angina pectoris; E03.9 Hypothyroidism, unspecified; I25.2 Old myocardial infarction; I25.5 Ischemic cardiomyopathy; E78.00 Pure hypercholesterolemia, unspecified; E53.8 Deficiency of other specified B group vitamins; Z79.899 Other long term (current) drug therapy; Z87.440 Personal history of urinary (tract) infections
CPT/HCPCS: 96365; 96366; G0463; J1250

== ENCOUNTER 2025-01-22 09:17 | Outpatient (CLI) | payer MEDICARE, OTHER ==
[2025-01-22] VITALS (9 sets, daily range): BP systolic 114–157; BP diastolic 48–72; PULSE 60–66; RESP 16; O2SAT 98
[2025-01-22] MEDS: DOBUTamine 1000MCG/ML 250 ML IV ONE ×2 (09:39→09:49)
[2025-01-22] MEDS: CYANOCOBALAMIN (B-12) 1000 MCG/1 ML VIAL ONE (09:39)
[2025-01-22] MEDS: CYANOCOBALAMIN (B-12) 1000 MCG/1 ML VIAL IM ONE (12:48)
== END 2025-01-22 17:00 | disposition home or self-care (01) ==
LOC: CHF HDHVI 09:17
PROVIDERS: ATTEND Internal Medicine Cardiovascular Disease
DX: I13.0 Hypertensive heart and chronic kidney disease with heart failure and stage 1 through stage 4 chronic kidney disease, or unspecified chronic kidney disease (principal); E11.22 Type 2 diabetes mellitus with diabetic chronic kidney disease; I50.33 Acute on chronic diastolic (congestive) heart failure; N18.4 Chronic kidney disease, stage 4 (severe); E53.8 Deficiency of other specified B group vitamins; D64.9 Anemia, unspecified; I25.5 Ischemic cardiomyopathy; I25.10 Atherosclerotic heart disease of native coronary artery without angina pectoris; I25.2 Old myocardial infarction; E11.51 Type 2 diabetes mellitus with diabetic peripheral angiopathy without gangrene; E78.00 Pure hypercholesterolemia, unspecified; E03.9 Hypothyroidism, unspecified; Z79.899 Other long term (current) drug therapy
CPT/HCPCS: 96365; 96366; 96372; G0463; J1250; J3420

== ENCOUNTER 2025-01-27 09:14 | Outpatient (CLI) | payer MEDICARE, OTHER ==
[2025-01-27] VITALS (9 sets, daily range): BP systolic 116–177; BP diastolic 42–66; PULSE 54–62; RESP 16; O2SAT 98
[2025-01-27] MEDS: DOBUTamine 1000MCG/ML 250 ML IV ONE ×2 (09:25→09:32)
== END 2025-01-27 17:00 | disposition home or self-care (01) ==
LOC: CHF HDHVI 09:14
PROVIDERS: ATTEND Internal Medicine Cardiovascular Disease
DX: I13.0 Hypertensive heart and chronic kidney disease with heart failure and stage 1 through stage 4 chronic kidney disease, or unspecified chronic kidney disease (principal); E11.22 Type 2 diabetes mellitus with diabetic chronic kidney disease; N18.4 Chronic kidney disease, stage 4 (severe); I50.33 Acute on chronic diastolic (congestive) heart failure; I25.5 Ischemic cardiomyopathy; I25.10 Atherosclerotic heart disease of native coronary artery without angina pectoris; E03.9 Hypothyroidism, unspecified; I25.2 Old myocardial infarction; E78.00 Pure hypercholesterolemia, unspecified; E11.51 Type 2 diabetes mellitus with diabetic peripheral angiopathy without gangrene; Z79.899 Other long term (current) drug therapy
CPT/HCPCS: 96365; 96366; G0463; J1250

== ENCOUNTER 2025-02-03 09:10 | Outpatient (CLI) | payer MEDICARE, OTHER ==
[2025-02-03] VITALS (9 sets, daily range): BP systolic 115–149; BP diastolic 49–71; PULSE 61–69; RESP 16; O2SAT 98
[2025-02-03] MEDS: DOBUTamine 1000MCG/ML 250 ML IV ONE ×2 (09:17→09:28)
== END 2025-02-03 17:00 | disposition home or self-care (01) ==
LOC: CHF HDHVI 09:10
PROVIDERS: ATTEND Internal Medicine Cardiovascular Disease
DX: I13.0 Hypertensive heart and chronic kidney disease with heart failure and stage 1 through stage 4 chronic kidney disease, or unspecified chronic kidney disease (principal); E11.22 Type 2 diabetes mellitus with diabetic chronic kidney disease; I50.43 Acute on chronic combined systolic (congestive) and diastolic (congestive) heart failure; N18.4 Chronic kidney disease, stage 4 (severe); I25.5 Ischemic cardiomyopathy; I25.10 Atherosclerotic heart disease of native coronary artery without angina pectoris; I25.2 Old myocardial infarction; E11.51 Type 2 diabetes mellitus with diabetic peripheral angiopathy without gangrene; E78.00 Pure hypercholesterolemia, unspecified; E03.9 Hypothyroidism, unspecified; Z79.899 Other long term (current) drug therapy
CPT/HCPCS: 96365; 96366; G0463; J1250

== ENCOUNTER 2025-02-24 09:08 | Outpatient (CLI) | payer MEDICARE, OTHER ==
[2025-02-24] VITALS (9 sets, daily range): BP systolic 131–176; BP diastolic 45–71; PULSE 65–72; RESP 16; O2SAT 96
[2025-02-24] MEDS: DOBUTamine 1000MCG/ML 250 ML IV ONE ×2 (09:31→09:32)
== END 2025-02-24 17:00 | disposition home or self-care (01) ==
LOC: CHF HDHVI 09:08
PROVIDERS: ATTEND Internal Medicine Cardiovascular Disease
DX: I13.0 Hypertensive heart and chronic kidney disease with heart failure and stage 1 through stage 4 chronic kidney disease, or unspecified chronic kidney disease (principal); E11.22 Type 2 diabetes mellitus with diabetic chronic kidney disease; I50.43 Acute on chronic combined systolic (congestive) and diastolic (congestive) heart failure; N18.4 Chronic kidney disease, stage 4 (severe); I25.5 Ischemic cardiomyopathy; I25.10 Atherosclerotic heart disease of native coronary artery without angina pectoris; I25.2 Old myocardial infarction; E11.51 Type 2 diabetes mellitus with diabetic peripheral angiopathy without gangrene; E78.00 Pure hypercholesterolemia, unspecified; E03.9 Hypothyroidism, unspecified; Z79.899 Other long term (current) drug therapy
CPT/HCPCS: 96365; 96366; G0463; J1250

== ENCOUNTER 2025-03-10 09:04 | Outpatient (CLI) | payer MEDICARE, OTHER ==
[2025-03-10] VITALS (9 sets, daily range): BP systolic 136–169; BP diastolic 53–80; PULSE 64–71; RESP 16; O2SAT 96
[2025-03-10] MEDS: DOBUTamine 1000MCG/ML 250 ML IV ONE ×2 (09:22→09:31)
[2025-03-10] MEDS: CYANOCOBALAMIN (B-12) 1000 MCG/1 ML VIAL ONE (09:22)
[2025-03-10] MEDS: CYANOCOBALAMIN (B-12) 1000 MCG/1 ML VIAL IM ONE (09:34)
== END 2025-03-10 17:00 | disposition home or self-care (01) ==
LOC: CHF HDHVI 09:04
PROVIDERS: ATTEND Internal Medicine Cardiovascular Disease
DX: I13.0 Hypertensive heart and chronic kidney disease with heart failure and stage 1 through stage 4 chronic kidney disease, or unspecified chronic kidney disease (principal); E11.22 Type 2 diabetes mellitus with diabetic chronic kidney disease; I50.33 Acute on chronic diastolic (congestive) heart failure; N18.4 Chronic kidney disease, stage 4 (severe); D63.1 Anemia in chronic kidney disease; E53.8 Deficiency of other specified B group vitamins; I25.10 Atherosclerotic heart disease of native coronary artery without angina pectoris; I25.5 Ischemic cardiomyopathy; I25.2 Old myocardial infarction; E11.51 Type 2 diabetes mellitus with diabetic peripheral angiopathy without gangrene; E78.00 Pure hypercholesterolemia, unspecified; E03.9 Hypothyroidism, unspecified; Z79.899 Other long term (current) drug therapy
CPT/HCPCS: 96365; 96366; 96372; G0463; J1250; J3420

== ENCOUNTER 2025-03-17 08:03 | Outpatient (CLI) | payer MEDICARE, OTHER ==
[2025-03-17] VITALS (9 sets, daily range): BP systolic 158–197; BP diastolic 63–86; PULSE 61–70; RESP 16; O2SAT 97
[2025-03-17] MEDS: DOBUTamine 1000MCG/ML 250 ML IV ONE ×2 (08:58→09:02)
--- NOTE | 2025-03-23 12:29 | DVHSR ---
APPROVED REPORT EXAM: Two-dimensional and M-mode echocardiogram with Doppler and color Doppler. DIMENSIONS LVDd3.6 (3.8-5.7cm)LA (2D)4.5 (1.9-4.0cm)Aortic Root3.6 (2.0-3.7cm) LVDs2.6 (2.5-4.0cm)LA (MM) (1.9-4.0cm)Aortic Cusp Exc1.4 (1.5-2.0cm) EF (%) 55.0 (55-70%)Rt. Atrium4.2 (1.9-4.0cm)Asc. Aorta cm IVSd0.9 (0.7-1.1cm)RV (D)3.9 (1.8-2.4cm) PWd1.1 (0.7-1.1cm) Mitral Valve MitralMitral Stenosis E wave1.23m/sMV Mean GR.mmHg A wave1.33m/sMV Peak GR.mmHg E/A ratio0.92D MVAcm2 DECEL [id number] 1/2 Timems Aortic Valve Aortic ValveAortic Stenosis V11.18m/Gian Mean GR.7mmHg V21.75m/Gian Peak GR.12mmHg LVOT Diameter2.0 (1.8-2.4cm)Doppler AVA2.12cm2 AI P 1/2 Qacf182.95ms Pulmonic Valve V20.87m/s Tricuspid Valve TR Velocity3.06m/s [id number] LEFT VENTRICLE The left ventricle is normal size. The left ventricle is normal in structure and function. The Ejection Fraction is within normal limits. RIGHT VENTRICLE The right ventricle is normal size. ATRIA The left atrium is enlarged. The right atrium is enlarged. The interatrial septum is intact with no evidence for an atrial septal defect. MITRAL VALVE The mitral valve is normal in structure. Mitral annular calcification is mild. Mitral regurgitation is mild. PULMONIC VALVE The pulmonic valve is not well visualized. There is mild pulmonic valvular regurgitation. TRICUSPID VALVE The tricuspid valve is grossly normal. There is mild tricuspid regurgitation. Right ventricular systolic pressure is 30-40 mmHg. AORTIC VALVE The aortic valve opens well. The aortic valve is mildly calcified. There is mild aortic regurgitation. GREAT VESSELS The aortic root is normal size. PERICARDIAL EFFUSION There is no pericardial effusion. Other Information Technically limited study due to body habitus. Conclusion EF >55% MILD MAC MILD AV SCLEROSIS MILD PI MILD TR MILD AI
== END 2025-03-17 17:00 | disposition home or self-care (01) ==
LOC: Rad HDHVI 08:03
PROVIDERS: ATTEND Internal Medicine Cardiovascular Disease
DX: I13.0 Hypertensive heart and chronic kidney disease with heart failure and stage 1 through stage 4 chronic kidney disease, or unspecified chronic kidney disease (principal); E11.22 Type 2 diabetes mellitus with diabetic chronic kidney disease; I50.33 Acute on chronic diastolic (congestive) heart failure; N18.4 Chronic kidney disease, stage 4 (severe); D63.1 Anemia in chronic kidney disease; I25.10 Atherosclerotic heart disease of native coronary artery without angina pectoris; I25.5 Ischemic cardiomyopathy; I25.2 Old myocardial infarction; E11.51 Type 2 diabetes mellitus with diabetic peripheral angiopathy without gangrene; E53.8 Deficiency of other specified B group vitamins; E03.9 Hypothyroidism, unspecified; Z79.899 Other long term (current) drug therapy
CPT/HCPCS: 93306; 96365; 96366; G0463; J1250

== ENCOUNTER 2025-03-24 09:43 | Outpatient (CLI) | payer MEDICARE, OTHER ==
[2025-03-24] VITALS (9 sets, daily range): BP systolic 151–190; BP diastolic 56–88; PULSE 69–93; RESP 16; O2SAT 96
[2025-03-24] MEDS: DOBUTamine 1000MCG/ML 250 ML IV ONE ×2 (09:57→10:00)
== END 2025-03-24 17:00 | disposition home or self-care (01) ==
LOC: CHF HDHVI 09:43
PROVIDERS: ATTEND Internal Medicine Cardiovascular Disease
DX: I13.0 Hypertensive heart and chronic kidney disease with heart failure and stage 1 through stage 4 chronic kidney disease, or unspecified chronic kidney disease (principal); E11.22 Type 2 diabetes mellitus with diabetic chronic kidney disease; N18.4 Chronic kidney disease, stage 4 (severe); I50.33 Acute on chronic diastolic (congestive) heart failure; I25.10 Atherosclerotic heart disease of native coronary artery without angina pectoris; E03.9 Hypothyroidism, unspecified; I25.2 Old myocardial infarction; E11.51 Type 2 diabetes mellitus with diabetic peripheral angiopathy without gangrene; E78.00 Pure hypercholesterolemia, unspecified; Z79.899 Other long term (current) drug therapy
CPT/HCPCS: 96365; 96366; G0463; J1250

== ENCOUNTER 2025-03-31 09:16 | Outpatient (CLI) | payer MEDICARE, OTHER ==
[2025-03-31] VITALS (10 sets, daily range): BP systolic 141–186; BP diastolic 60–82; PULSE 73–103; RESP 16; O2SAT 96
[2025-03-31] MEDS: DOBUTamine 1000MCG/ML 250 ML IV ONE ×2 (10:03→10:07)
[2025-03-31] MEDS: LIDOCAINE VISCOUS 2% 15ML UD ONE (14:54)
[2025-03-31] MEDS: DONNATAL 5ml ORAL Elix (BELLADONNA ALK-PHENOBARB) ONE (14:54)
[2025-03-31] MEDS: MAALOX PLUS or MAALOX 30 ML ONE (14:54)
== END 2025-03-31 17:00 | disposition home or self-care (01) ==
LOC: CHF HDHVI 09:16
PROVIDERS: ATTEND Internal Medicine Cardiovascular Disease
DX: I13.0 Hypertensive heart and chronic kidney disease with heart failure and stage 1 through stage 4 chronic kidney disease, or unspecified chronic kidney disease (principal); E11.22 Type 2 diabetes mellitus with diabetic chronic kidney disease; I50.33 Acute on chronic diastolic (congestive) heart failure; N18.4 Chronic kidney disease, stage 4 (severe); E11.51 Type 2 diabetes mellitus with diabetic peripheral angiopathy without gangrene; E03.9 Hypothyroidism, unspecified; I25.2 Old myocardial infarction; E78.00 Pure hypercholesterolemia, unspecified; I25.10 Atherosclerotic heart disease of native coronary artery without angina pectoris; I25.5 Ischemic cardiomyopathy; Z79.899 Other long term (current) drug therapy; Z87.440 Personal history of urinary (tract) infections
CPT/HCPCS: 96365; 96366; G0463; J1250

== ENCOUNTER → 2025-04-02 | Outpatient (CLI) | payer MEDICARE, OTHER | END | disposition home or self-care (01) | LOC: Rad HDHVI 12:56 | PROVIDERS: ATTEND Internal Medicine Cardiovascular Disease | DX: I08.8 Other rheumatic multiple valve diseases (principal); I50.33 Acute on chronic diastolic (congestive) heart failure | CPT/HCPCS: 93306 ==

== ENCOUNTER 2025-04-07 10:29 | Outpatient (CLI) | payer MEDICARE, OTHER ==
[2025-04-07] VITALS (9 sets, daily range): BP systolic 126–166; BP diastolic 51–78; PULSE 66–70; RESP 16; O2SAT 95
[2025-04-07] MEDS: DOBUTamine 1000MCG/ML 250 ML IV ONE ×2 (11:05→11:07)
[2025-04-07] MEDS: CYANOCOBALAMIN (B-12) 1000 MCG/1 ML VIAL ONE (13:34)
[2025-04-07] MEDS: CYANOCOBALAMIN (B-12) 1000 MCG/1 ML VIAL IM ONE (14:00)
== END 2025-04-07 17:00 | disposition home or self-care (01) ==
LOC: CHF HDHVI 10:29
PROVIDERS: ATTEND Internal Medicine Cardiovascular Disease
DX: I13.0 Hypertensive heart and chronic kidney disease with heart failure and stage 1 through stage 4 chronic kidney disease, or unspecified chronic kidney disease (principal); E11.22 Type 2 diabetes mellitus with diabetic chronic kidney disease; N18.4 Chronic kidney disease, stage 4 (severe); I50.33 Acute on chronic diastolic (congestive) heart failure; D63.1 Anemia in chronic kidney disease; I25.10 Atherosclerotic heart disease of native coronary artery without angina pectoris; E03.9 Hypothyroidism, unspecified; I25.2 Old myocardial infarction; E78.00 Pure hypercholesterolemia, unspecified; E11.51 Type 2 diabetes mellitus with diabetic peripheral angiopathy without gangrene; E53.8 Deficiency of other specified B group vitamins; Z79.899 Other long term (current) drug therapy
CPT/HCPCS: 96365; 96366; 96372; G0463; J1250; J3420

== ENCOUNTER 2025-04-21 09:53 | Outpatient (CLI) | payer MEDICARE, OTHER ==
[2025-04-21] VITALS (9 sets, daily range): BP systolic 102–126; BP diastolic 45–53; PULSE 78–88; RESP 16; O2SAT 96
[2025-04-21] MEDS: DOBUTamine 1000MCG/ML 250 ML IV ONE ×2 (10:06→10:17)
[2025-04-21] MEDS ORDERED: NALOXONE HCL 0.4 MG/ML VIAL ONE (12:51)
[2025-04-21] MEDS ORDERED: LIDOCAINE VISCOUS 2% 15ML UD ONE (13:14)
== END 2025-04-21 17:00 | disposition home or self-care (01) ==
LOC: CHF HDHVI 09:53
PROVIDERS: ATTEND Internal Medicine Cardiovascular Disease
DX: I13.0 Hypertensive heart and chronic kidney disease with heart failure and stage 1 through stage 4 chronic kidney disease, or unspecified chronic kidney disease (principal); E11.22 Type 2 diabetes mellitus with diabetic chronic kidney disease; I50.43 Acute on chronic combined systolic (congestive) and diastolic (congestive) heart failure; N18.4 Chronic kidney disease, stage 4 (severe); E11.51 Type 2 diabetes mellitus with diabetic peripheral angiopathy without gangrene; D63.1 Anemia in chronic kidney disease; I25.10 Atherosclerotic heart disease of native coronary artery without angina pectoris; E03.9 Hypothyroidism, unspecified; I25.5 Ischemic cardiomyopathy; E78.00 Pure hypercholesterolemia, unspecified; I25.2 Old myocardial infarction; D51.8 Other vitamin B12 deficiency anemias; Z79.899 Other long term (current) drug therapy; Z87.440 Personal history of urinary (tract) infections
CPT/HCPCS: 96365; 96366; G0463; J1250

== ENCOUNTER 2025-04-28 09:54 | Outpatient (CLI) | payer MEDICARE, OTHER ==
[2025-04-28] VITALS (10 sets, daily range): BP systolic 109–155; BP diastolic 53–72; PULSE 87–122; RESP 16; O2SAT 96
[2025-04-28] MEDS: DOBUTamine 1000MCG/ML 250 ML IV ONE ×2 (10:25→10:32)
== END 2025-04-28 17:00 | disposition home or self-care (01) ==
LOC: CHF HDHVI 09:54
PROVIDERS: ATTEND Internal Medicine Cardiovascular Disease
DX: I13.0 Hypertensive heart and chronic kidney disease with heart failure and stage 1 through stage 4 chronic kidney disease, or unspecified chronic kidney disease (principal); E11.22 Type 2 diabetes mellitus with diabetic chronic kidney disease; I50.43 Acute on chronic combined systolic (congestive) and diastolic (congestive) heart failure; N18.4 Chronic kidney disease, stage 4 (severe); D63.1 Anemia in chronic kidney disease; I25.10 Atherosclerotic heart disease of native coronary artery without angina pectoris; I25.5 Ischemic cardiomyopathy; I25.2 Old myocardial infarction; E11.51 Type 2 diabetes mellitus with diabetic peripheral angiopathy without gangrene; E03.9 Hypothyroidism, unspecified; E78.00 Pure hypercholesterolemia, unspecified; D51.3 Other dietary vitamin B12 deficiency anemia; Z79.899 Other long term (current) drug therapy
CPT/HCPCS: 96365; 96366; G0463; J1250

== ENCOUNTER 2025-05-05 09:49 | Outpatient (CLI) | payer MEDICARE, OTHER ==
[~2025-05-05] VITALS: Ht 30.5 cm; Wt 88.0 kg
[2025-05-05] VITALS (9 sets, daily range): BP systolic 137–168; BP diastolic 52–75; PULSE 60–81; RESP 18; O2SAT 97
[2025-05-05] MEDS: DOBUTamine 1000MCG/ML 250 ML IV ONE ×3 (10:00→10:06)
[2025-05-05] MEDS: CYANOCOBALAMIN (B-12) 1000 MCG/1 ML VIAL ONE (10:00)
[2025-05-05] MEDS: CYANOCOBALAMIN (B-12) 1000 MCG/1 ML VIAL IM ONE (10:05)
== END 2025-05-05 17:00 | disposition home or self-care (01) ==
LOC: CHF HDHVI 09:49
PROVIDERS: ATTEND Internal Medicine Cardiovascular Disease
DX: I13.0 Hypertensive heart and chronic kidney disease with heart failure and stage 1 through stage 4 chronic kidney disease, or unspecified chronic kidney disease (principal); E11.22 Type 2 diabetes mellitus with diabetic chronic kidney disease; I50.43 Acute on chronic combined systolic (congestive) and diastolic (congestive) heart failure; N18.4 Chronic kidney disease, stage 4 (severe); D63.1 Anemia in chronic kidney disease; D51.3 Other dietary vitamin B12 deficiency anemia; E11.51 Type 2 diabetes mellitus with diabetic peripheral angiopathy without gangrene; I25.10 Atherosclerotic heart disease of native coronary artery without angina pectoris; E03.9 Hypothyroidism, unspecified; I25.5 Ischemic cardiomyopathy; E78.00 Pure hypercholesterolemia, unspecified; I25.2 Old myocardial infarction; R60.9 Edema, unspecified; R53.83 Other fatigue; Z79.899 Other long term (current) drug therapy; Z87.440 Personal history of urinary (tract) infections
CPT/HCPCS: 96365; 96366; 96372; G0463; J1250; J3420

== ENCOUNTER 2025-05-12 09:44 | Outpatient (CLI) | payer MEDICARE, OTHER ==
[2025-05-12] VITALS (9 sets, daily range): BP systolic 122–146; BP diastolic 47–70; PULSE 71–114; RESP 16; O2SAT 97
[2025-05-12] MEDS: DOBUTamine 1000MCG/ML 250 ML IV ONE ×2 (10:13→10:17)
== END 2025-05-12 17:00 | disposition home or self-care (01) ==
LOC: CHF HDHVI 09:44
PROVIDERS: ATTEND Internal Medicine Cardiovascular Disease
DX: I13.0 Hypertensive heart and chronic kidney disease with heart failure and stage 1 through stage 4 chronic kidney disease, or unspecified chronic kidney disease (principal); I50.43 Acute on chronic combined systolic (congestive) and diastolic (congestive) heart failure; E11.22 Type 2 diabetes mellitus with diabetic chronic kidney disease; N18.4 Chronic kidney disease, stage 4 (severe); E11.51 Type 2 diabetes mellitus with diabetic peripheral angiopathy without gangrene; D63.1 Anemia in chronic kidney disease; I25.10 Atherosclerotic heart disease of native coronary artery without angina pectoris; E03.9 Hypothyroidism, unspecified; I25.5 Ischemic cardiomyopathy; E78.00 Pure hypercholesterolemia, unspecified; I25.2 Old myocardial infarction; R60.9 Edema, unspecified; Z79.899 Other long term (current) drug therapy; Z87.440 Personal history of urinary (tract) infections
CPT/HCPCS: 96365; 96366; G0463; J1250

== ENCOUNTER 2025-05-27 09:30 | Outpatient (CLI) | payer MEDICARE, OTHER ==
[2025-05-27] VITALS (10 sets, daily range): BP systolic 109–146; BP diastolic 46–55; PULSE 83–105; RESP 18; O2SAT 98
[2025-05-27] MEDS: DOBUTamine 1000MCG/ML 250 ML IV ONE ×2 (09:46→09:50)
== END 2025-05-27 17:00 | disposition home or self-care (01) ==
LOC: CHF HDHVI 09:30
PROVIDERS: ATTEND Internal Medicine Cardiovascular Disease
DX: I13.0 Hypertensive heart and chronic kidney disease with heart failure and stage 1 through stage 4 chronic kidney disease, or unspecified chronic kidney disease (principal); E11.22 Type 2 diabetes mellitus with diabetic chronic kidney disease; I50.43 Acute on chronic combined systolic (congestive) and diastolic (congestive) heart failure; N18.4 Chronic kidney disease, stage 4 (severe); D63.1 Anemia in chronic kidney disease; E11.51 Type 2 diabetes mellitus with diabetic peripheral angiopathy without gangrene; I25.10 Atherosclerotic heart disease of native coronary artery without angina pectoris; R60.9 Edema, unspecified; E03.9 Hypothyroidism, unspecified; I25.5 Ischemic cardiomyopathy; I25.2 Old myocardial infarction; D51.8 Other vitamin B12 deficiency anemias; E78.00 Pure hypercholesterolemia, unspecified; Z79.899 Other long term (current) drug therapy; Z87.440 Personal history of urinary (tract) infections
CPT/HCPCS: 96365; 96366; G0463; J1250

== ENCOUNTER 2025-06-02 09:37 | Outpatient (CLI) | payer MEDICARE, OTHER ==
[2025-06-02] VITALS (9 sets, daily range): BP systolic 126–142; BP diastolic 53–68; PULSE 78–100; RESP 16; O2SAT 97
[2025-06-02] MEDS: DOBUTamine 1000MCG/ML 250 ML IV ONE ×2 (10:14→10:15)
[2025-06-02] MEDS: CYANOCOBALAMIN (B-12) 1000 MCG/1 ML VIAL ONE (13:13)
[2025-06-02] MEDS: CYANOCOBALAMIN (B-12) 1000 MCG/1 ML VIAL IM ONE (14:11)
== END 2025-06-02 17:00 | disposition home or self-care (01) ==
LOC: CHF HDHVI 09:37
PROVIDERS: ATTEND Internal Medicine Cardiovascular Disease
DX: I13.0 Hypertensive heart and chronic kidney disease with heart failure and stage 1 through stage 4 chronic kidney disease, or unspecified chronic kidney disease (principal); E11.22 Type 2 diabetes mellitus with diabetic chronic kidney disease; I50.43 Acute on chronic combined systolic (congestive) and diastolic (congestive) heart failure; N18.4 Chronic kidney disease, stage 4 (severe); D63.1 Anemia in chronic kidney disease; D51.8 Other vitamin B12 deficiency anemias; E11.51 Type 2 diabetes mellitus with diabetic peripheral angiopathy without gangrene; I25.10 Atherosclerotic heart disease of native coronary artery without angina pectoris; E03.9 Hypothyroidism, unspecified; I25.5 Ischemic cardiomyopathy; I25.2 Old myocardial infarction; E78.00 Pure hypercholesterolemia, unspecified; Z79.899 Other long term (current) drug therapy; Z87.440 Personal history of urinary (tract) infections
CPT/HCPCS: 96365; 96366; 96372; G0463; J1250; J3420

== ENCOUNTER 2025-06-09 09:17 | Outpatient (CLI) | payer MEDICARE, OTHER ==
[2025-06-09] VITALS (9 sets, daily range): BP systolic 108–135; BP diastolic 45–58; PULSE 78–94; RESP 16; O2SAT 96
[2025-06-09] MEDS: DOBUTamine 1000MCG/ML 250 ML IV ONE ×2 (09:38→09:40)
== END 2025-06-09 17:00 | disposition home or self-care (01) ==
LOC: CHF HDHVI 09:17
PROVIDERS: ATTEND Internal Medicine Cardiovascular Disease
DX: I13.0 Hypertensive heart and chronic kidney disease with heart failure and stage 1 through stage 4 chronic kidney disease, or unspecified chronic kidney disease (principal); E11.22 Type 2 diabetes mellitus with diabetic chronic kidney disease; I50.43 Acute on chronic combined systolic (congestive) and diastolic (congestive) heart failure; N18.4 Chronic kidney disease, stage 4 (severe); D63.1 Anemia in chronic kidney disease; E11.51 Type 2 diabetes mellitus with diabetic peripheral angiopathy without gangrene; I25.10 Atherosclerotic heart disease of native coronary artery without angina pectoris; E03.9 Hypothyroidism, unspecified; I25.5 Ischemic cardiomyopathy; I25.2 Old myocardial infarction; E78.00 Pure hypercholesterolemia, unspecified; D51.8 Other vitamin B12 deficiency anemias; Z87.440 Personal history of urinary (tract) infections; Z79.899 Other long term (current) drug therapy
CPT/HCPCS: 96365; 96366; G0463; J1250

== ENCOUNTER 2025-06-16 09:00 | Outpatient (CLI) | payer MEDICARE, OTHER ==
[2025-06-16] VITALS (9 sets, daily range): BP systolic 110–139; BP diastolic 47–54; PULSE 79–98; RESP 16; O2SAT 99
[2025-06-16] MEDS: DOBUTamine 1000MCG/ML 250 ML IV ONE ×2 (09:27→09:29)
== END 2025-06-16 17:00 | disposition home or self-care (01) ==
LOC: CHF HDHVI 09:00
PROVIDERS: ATTEND Internal Medicine Cardiovascular Disease
DX: I13.0 Hypertensive heart and chronic kidney disease with heart failure and stage 1 through stage 4 chronic kidney disease, or unspecified chronic kidney disease (principal); E11.22 Type 2 diabetes mellitus with diabetic chronic kidney disease; I50.43 Acute on chronic combined systolic (congestive) and diastolic (congestive) heart failure; N18.4 Chronic kidney disease, stage 4 (severe); D63.1 Anemia in chronic kidney disease; E11.51 Type 2 diabetes mellitus with diabetic peripheral angiopathy without gangrene; I25.10 Atherosclerotic heart disease of native coronary artery without angina pectoris; E03.9 Hypothyroidism, unspecified; I25.5 Ischemic cardiomyopathy; D51.8 Other vitamin B12 deficiency anemias; E78.00 Pure hypercholesterolemia, unspecified; I25.2 Old myocardial infarction; Z79.899 Other long term (current) drug therapy; Z87.440 Personal history of urinary (tract) infections
CPT/HCPCS: 96365; 96366; G0463; J1250

== ENCOUNTER 2025-06-21 11:54 | Outpatient (CLI) | payer MEDICARE, OTHER ==
[2025-06-21 12:15] VITALS: BP 126/60; PULSE 74; RESP 16; O2SAT 98
[2025-06-21 12:36] VITALS: BP 123/58; PULSE 71; RESP 16; O2SAT 98
[2025-06-21] MEDS ORDERED: PRIM250T29 PO (15:49)
[2025-06-21] MEDS ORDERED: PANT40T PO (15:49)
[2025-06-21] MEDS ORDERED: BUMEX2MG (15:49)
[2025-06-21] MEDS ORDERED: ARTISOL13 EACHEYE (15:49)
[2025-06-21] MEDS ORDERED: PANC3600 OR (15:49)
[2025-06-21] MEDS ORDERED: GABA-1250 PO (15:49)
[2025-06-21] MEDS ORDERED: CHOL200029 PO (15:49)
[2025-06-21] MEDS ORDERED: TICA90TA PO (15:49)
[2025-06-21] MEDS ORDERED: ASPI-543 PO (15:49)
[2025-06-21] MEDS ORDERED: METO5TAB5 PO (15:49)
[2025-06-21] MEDS ORDERED: VERI5TAB PO (15:49)
[2025-06-21] MEDS ORDERED: ALLO300T2 PO (15:49)
[2025-06-21] MEDS ORDERED: MAGN100C5 PO (15:49)
[2025-06-21] MEDS ORDERED: MELA3TAB27 PO (15:49)
== END 2025-06-21 17:00 | disposition home or self-care (01) ==
LOC: CHF HDHVI 11:54
PROVIDERS: ATTEND Internal Medicine Cardiovascular Disease
DX: Z01.810 Encounter for preprocedural cardiovascular examination (principal); I25.10 Atherosclerotic heart disease of native coronary artery without angina pectoris; R94.31 Abnormal electrocardiogram [ECG] [EKG]
CPT/HCPCS: 93005; G0463

== ENCOUNTER 2025-06-24 07:44 | Day surgery (SDC) | payer MEDICARE, OTHER ==
[2025-06-21 15:42] LABS: Hematocrit 29.2 % (41.0-53.0); Hemoglobin 9.7 g/dL (13.5-17.5); Mean Corpuscular Hemoglobin 32.8 pg (28.0-32.0); Mean Corpuscular Volume 98.3 fL (80.0-100.0); Nucleated Red Blood Cells % 0.0 %
[2025-06-21 15:56] LABS: INR 0.94 (0.9-1.15); Partial Thromboplastin Time 28.5 SEC (24.5-34.5); Prothrombin Time 10.0 sec (9.3-11.8)
[2025-06-21 16:00] LABS: Chloride 101 mmol/L (98-107); Potassium 4.2 mmol/L (3.5-5.1)
[2025-06-21 16:01] LABS: Anion Gap 12 (5-15); Calcium 9.0 mg/dL (8.7-10.4); Carbon Dioxide 22 mmol/L (20-31)
[2025-06-21 16:06] LABS: BUN/Creatinine Ratio 21.3 (10.0-20.0); Blood Urea Nitrogen 62 mg/dL (9-23); Glucose 83 mg/dL (74-106); Sodium 135 mmol/L (136-145)
[~2025-06-24] VITALS: Ht 180.3 cm; Wt 85.3 kg
[~2025-06-24 07:44] MED LIST changes: +ALLO300T2 PO; +ARTISOL13 EACHEYE; +ASPI-543 PO; +BUMEX2MG; +CHOL200029 PO; +GABA-1250 PO; +MAGN100C5 PO; +MELA3TAB27 PO; +METO5TAB5 PO; +PANC3600 OR; +PANT40T PO; -POTASSIUM CHL 20 Meq TABLET PO ONE; +PRIM250T29 PO; +TICA90TA PO; +VERI5TAB PO
[2025-06-24] MEDS: ANGIOMAX 250 MG VIAL IV ONE (09:10)
[2025-06-24] MEDS: LIDOCAINE 2%HCL (LOCAL ANESTH.) INJ 20ML MDV ONE (09:10)
[2025-06-24] MEDS: MIDAZOLAM HCL 2MG/2ML 2ml VIAL (1mg/ml) ONE (09:11)
[2025-06-24] MEDS: SODIUM CHL 0.9% 0 ML ONE (09:11)
[2025-06-24] MEDS: fentaNYL CITRATE 100 MCG/2 ML VL ONE (09:11)
[2025-06-24] MEDS: IOHEXOL 350 MG/ML 100ML IJ ONE (10:02)
[2025-06-24] MEDS: IODIXANOL 320MG/ML 100ML BTL IV ONE (10:38)
--- NOTE | 2025-06-25 06:47 | DVHHP ---
ADMIT DATE: 06/24/2025 HISTORY OF PRESENT ILLNESS: The patient who is 89 years old with history of coronary artery disease, history of angioplasty, stent placement in 03/2025. The patient, however, has had increasing symptoms of chest pain. Because of the above presentation, it is felt that the patient should undergo coronary angiography to define coronary anatomy. Furthermore, he has been having increasing symptoms of chest pain as well as abnormal stress Cardiolite. A left ventricular ejection fraction showed mild decrease in left ventricular ejection fraction. The patient is now to undergo left heart catheterization. Risks and benefits were explained to the patient. The patient understands and agrees. PAST MEDICAL HISTORY: Pertinent medical history is significant for hypertension, hyperlipidemia, history of coronary artery disease, history of angioplasty with stent placement. No history of diabetes. No history of tobacco use. No history of alcohol. No history of any recent fever, chills, melena or hematochezia. He is severely hypertensive and heavy calcification is noted. 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 Therefore, he is not a candidate for any open-heart procedure. FAMILY HISTORY: Negative. SOCIAL HISTORY: Negative. REVIEW OF SYSTEMS: Denies any seizure disorder. Denies any melena or hematochezia. However, patient does have renal failure stage 4 with a creatinine of 2.91. PHYSICAL EXAMINATION: VITAL SIGNS: Blood pressure is 145/82, pulse of 70 and regular. O2 saturation 94% on 2 liters. HEENT: Pupils are reactive. Funduscopic exam shows some AV nicking and some hard exudate. No papilledema. Sclerae anicteric. Extraocular muscles are intact. Oral mucosa moist. Posterior pharynx without any exudate. Tympanic membranes are negative. NECK: No JVD appreciated. Carotid pulses are 2+ and symmetrical. No bruits appreciated at this time. PULMONARY: Clear to auscultation in all lung mckeon. Tympanic to percussion. CARDIOVASCULAR: Regular rate without S3, without S4. There is a soft 2/6 systolic murmur along the left sternal border. ABDOMEN: Soft, nontender. Normal bowel sounds. Stool guaiac negative. EXTREMITIES: 1+ edema, 1+ pulses. NEUROLOGIC: The patient is intact. ASSESSMENT AND PLAN: Thus, the patient with a combination of mild systolic and diastolic heart failure, accelerated hypertension, history of coronary artery disease, status post angioplasty with stent placement. Now, because of ongoing chest pain, the patient is to undergo coronary angiography. Further recommendations after the angiogram. Basil Mendez MD SA/YAMINI/LILLIANA TID: [id number] RECEIPT: [id number]
--- NOTE | 2025-06-25 06:48 | DVHDS ---
DATE OF DISCHARGE: 06/24/2025 DISCHARGE DIAGNOSES: * Diastolic heart failure. * Hypertension. * The patient's coronary anatomy shows patent coronary arteries with small vessel disease. The patient has renal insufficiency, creatinine of 2.91, but only used about 25 mL of Visipaque. The patient's blood pressure needs to be adequately controlled. ANTICOAGULATION: Dual antiplatelet therapy needs to be maintained since the patient had angioplasty and stent placed in 03/2025. Stable at the time of discharge. DISPOSITION: Home. ACTIVITIES: As instructed. DIET: 2 grams sodium diet. Basil Mnedez MD SA/EKT/GRACIE TID: [id number] RECEIPT: [id number]
--- NOTE | 2025-08-06 13:45 | DVHOP ---
DATE OF SURGERY: 06/24/2025 CARDIAC CATHETERIZATION REPORT INDICATIONS: The patient with a history of coronary artery disease, history of angioplasty with stent placement in the past, now with renal insufficiency with creatinine of 2.91. The patient is to undergo coronary angiography to find coronary anatomy because of ongoing symptoms of chest pain. Visipaque was used during the course of the procedure. PROCEDURES PERFORMED: Selective left and right coronary angiography, ventriculogram, and right iliac angiography and conscious sedation. DESCRIPTION OF PROCEDURE: The patient was prepped and draped in the sterile condition. Xylocaine 1% was used to anesthetize the right groin. Using a Cook needle, right femoral artery was engaged. With a Seldinger technique, a 6-Estonian sheath was introduced into the right femoral artery. Using a 6-Estonian JL4 catheter and a 6-Estonian JR4 catheter, selective left and right coronary angiography was performed. Using a 6-Estonian Pigtail catheter, a ventriculogram was done. Total contrast used was 40 mL of Visipaque. RESULTS: Left ventricular function was preserved with an estimated EF greater than 60% with LVEDP of 18 mmHg with no gradient across the aortic valve. Selective left and right coronary angiography revealed: * Calcified left main with no flow-restrictive lesion. * Mild intimal irregularity of the left anterior descending artery without any flow-restrictive lesion. * Circumflex without any flow-restrictive lesion. * Right coronary artery without any flow-restrictive lesion. CONCLUSION: At this time, patient's previous stented site is patent. No evidence of any progression of disease, but he has extensive small vessel disease. Otherwise, no significant epicardial vessel that requires any catheter-based surgical intervention. PLAN: Conservative medical management will continue to follow patient. Basil Mendez MD SA/RONY TID: [id number] RECEIPT: [id number]
== END 2025-06-24 13:41 | disposition home or self-care (01) ==
LOC: CATH 07:44
PROVIDERS: ATTEND Internal Medicine Cardiovascular Disease
DX: I25.10 Atherosclerotic heart disease of native coronary artery without angina pectoris (principal); R94.39 Abnormal result of other cardiovascular function study; I11.0 Hypertensive heart disease with heart failure; I50.40 Unspecified combined systolic (congestive) and diastolic (congestive) heart failure; E78.5 Hyperlipidemia, unspecified; Z79.82 Long term (current) use of aspirin; Z79.899 Other long term (current) drug therapy; Z95.5 Presence of coronary angioplasty implant and graft
CPT/HCPCS: 93458; C1760; C1894; J1644; J2250; J3010; J7030; Q9967; 36415; 80048; 85025; 85610; 85730; 93454; 99152

== ENCOUNTER 2025-07-21 09:40 | Outpatient (CLI) | payer MEDICARE, OTHER ==
[2025-07-21] VITALS (12 sets, daily range): BP systolic 122–152; BP diastolic 51–74; PULSE 77–105; RESP 16; O2SAT 97
[2025-07-21] MEDS: DOBUTamine 1000MCG/ML 250 ML IV ONE ×2 (09:47→10:10)
[2025-07-21] MEDS: ACETAMINOPHEN 500 MG TAB or CAP PO ONE ×2 (13:41→13:42)
== END 2025-07-21 17:00 | disposition home or self-care (01) ==
LOC: CHF HDHVI 09:40
PROVIDERS: ATTEND Internal Medicine Cardiovascular Disease
DX: I13.0 Hypertensive heart and chronic kidney disease with heart failure and stage 1 through stage 4 chronic kidney disease, or unspecified chronic kidney disease (principal); E11.22 Type 2 diabetes mellitus with diabetic chronic kidney disease; I50.43 Acute on chronic combined systolic (congestive) and diastolic (congestive) heart failure; N18.4 Chronic kidney disease, stage 4 (severe); D63.1 Anemia in chronic kidney disease; E11.51 Type 2 diabetes mellitus with diabetic peripheral angiopathy without gangrene; I25.10 Atherosclerotic heart disease of native coronary artery without angina pectoris; E03.9 Hypothyroidism, unspecified; E78.00 Pure hypercholesterolemia, unspecified; I25.2 Old myocardial infarction; Z79.899 Other long term (current) drug therapy; Z95.1 Presence of aortocoronary bypass graft; Z87.440 Personal history of urinary (tract) infections
CPT/HCPCS: 96365; 96366; G0463; J1250

== ENCOUNTER 2025-07-28 09:24 | Outpatient (CLI) | payer MEDICARE, OTHER ==
[2025-07-28] VITALS (9 sets, daily range): BP systolic 127–151; BP diastolic 51–62; PULSE 72–97; RESP 16; O2SAT 99–100
[2025-07-28] MEDS: DOBUTamine 1000MCG/ML 250 ML IV ONE ×2 (09:43→09:50)
== END 2025-07-28 17:00 | disposition home or self-care (01) ==
LOC: CHF HDHVI 09:24
PROVIDERS: ATTEND Internal Medicine Cardiovascular Disease
DX: I13.0 Hypertensive heart and chronic kidney disease with heart failure and stage 1 through stage 4 chronic kidney disease, or unspecified chronic kidney disease (principal); E11.22 Type 2 diabetes mellitus with diabetic chronic kidney disease; I50.43 Acute on chronic combined systolic (congestive) and diastolic (congestive) heart failure; N18.4 Chronic kidney disease, stage 4 (severe); D63.1 Anemia in chronic kidney disease; E11.51 Type 2 diabetes mellitus with diabetic peripheral angiopathy without gangrene; I25.10 Atherosclerotic heart disease of native coronary artery without angina pectoris; E03.9 Hypothyroidism, unspecified; E78.00 Pure hypercholesterolemia, unspecified; I25.5 Ischemic cardiomyopathy; I25.2 Old myocardial infarction; D51.8 Other vitamin B12 deficiency anemias; Z79.899 Other long term (current) drug therapy; Z87.440 Personal history of urinary (tract) infections; Z95.1 Presence of aortocoronary bypass graft; Z79.82 Long term (current) use of aspirin
CPT/HCPCS: 96365; 96366; G0463; J1250